=== PATIENT | female | born 1955 | race Caucasian/White ===

== ENCOUNTER 2017-03-21 16:04 | Inpatient (IN) ==
[2017-03-21] MEDS ORDERED: HYDROmorphone 2 MG/1 ML VIAL IV STA (16:47)
[2017-03-21] MEDS ORDERED: ONDANSETRON 4 MG/2 ML VIAL IV STA (16:47)
[2017-03-21] MEDS ORDERED: SODIUM CHLORIDE 0.9% 1,000 ML IV STA ×2 (16:47→17:31)
[2017-03-21 16:55] LABS: Basophils # 0.1 10*3/uL (0.0-0.2); Basophils % 0.6 % (0.0-0.8); Eosinophils % 0.2 % (0.00-10.9); Hematocrit 39.6 VOL% (35.7-47.0); Hemoglobin 13.5 GM/DL (12.0-16.0); Immature Granulocytes % 0.4 %; Immature Granulocytes Absolute 0.04 #; Lymphocytes # 1.9 10*3/uL (1.4-4.0); Lymphocytes % 17.5 % (21.3-54.2); Mean Corpuscular HGB Conc 34.1 GM/DL (32-36); Mean Corpuscular Hemoglobin 29 PG (27-34); Mean Corpuscular Volume 84.3 FL (87-102); Mean Platelet Volume 11.3 FL (9.6-12.0); Monocytes % 9.1 % (1.7-12.7); Neutrophils # 7.7 10*3/uL (1.4-7.4); Neutrophils % 72.2 % (38.7-73.9); Platelet Count 447 T/CUMM (130-400); Red Cell Distribution Width 14.7 % (9.3-17.3); White Blood Count 10.6 T/CUMM (4-12)
--- NOTE | 2017-03-21 16:56 | Emergency Department Note ---
Gabriel Jauregui Rolonda, am scribing for, and in the presence of, Gloria Mayo DO 16: 47. IGael Debra, DO, personally performed the services described in this documentation, ascribed by Elana Rios in my presence, and it is both accurate and complete 656 . Arrival - Arrival Chief Complaint: Nausea/Vomiting/Diarrhea Stated Complaint: chest pain,BP,n/v/d and chills ED Nursing Triage Note: c/o n/v/d, chills, and high blood pressure since Thursday. Patient states she can't keep anything down. Mode of Arrival: Wheelchair Limitations: No Limitations Source: Patient, Old Records Reviewed, RN Notes Reviewed - History of Present Illness HPI Narrative: Pt is a 61 y/o female who presents to the ED for further evaluation of N/V/D with an onset of x5 days. Pt has a PMHx of Ulcerative Colitis. She states that she cannot keep anything down when she eats or drinks. Pt confirms abdomen pain and muscle spasms in her lower extremities. also states that pt fell getting out of the bed Thursday night bruising her right breast due to having muscle spasms in her legs. No other complaint/pain in ED. Onset (ago): day(s) Consistency: constant Severity: moderate Severity scale (1-10): 5 Allergies/Adverse Reactions: Allergies Allergy/AdvReac Type Severity Reaction Status Date / Time No Known Allergies Allergy Verified 03/21/17 16:10 Home Medications: Home Medications Medication Instructions Recorded Confirmed Type Citalopram [CeleXA] 20 mg PO BEDTIME 08/03/15 08/03/15 History HYDROcodone/ACETAMIN 5-325 [[place] 1 tablet PO Q6H #14 tablet 08/03/15 Rx 5-325] Losartan [Cozaar] 25 mg PO DAILY 08/03/15 08/03/15 History Tizanidine HCl [Zanaflex] 4 mg PO DAILY 08/03/15 08/03/15 History Hydrocodone/Acetaminophen [[place] 1 each PO Q4-6H PRN #20 tablet 10/14/16 Rx 10-325 Tablet] Review of System - Review of System 12 point system: reviewed and no additional remarkable complaints except as stated - Review of System Constitutional: Absent: chills Eyes: Absent: discharge Head/Ears/Nose/Throat: Absent: earache Respiratory: Absent: cough Cardiovascular: Absent: chest pain Gastrointestinal: Present: abdominal pain, nausea, vomiting, diarrhea Genitourinary female: Absent: dysuria Musculoskeletal: Present: other (right breast pain). Absent: arm pain, back pain Skin: Absent: rash Neurological: Absent: headache Psychiatric: Absent: anxiety Endocrine: Absent: cold intolerance Hematological/Lymphatic: Absent: easy bleeding Allergic/Immunologic: Absent: facial swelling Medical,Surgical,& Family Hx - Medical History Gastrointestinal: History of: Ulcerative Colitis Musculoskeletal: No history of: Musculoskeletal Problems - Surgical History Orthopedic Surgeries: Surgical HX of;: Implanted Devices (PLATES IN LEFT WRIST) - Social History Smoking Status: Current every day smoker Frequency of Alcohol Use: None Type of Drug Use: None Exam Vital Signs: Vital Signs Temperature 98.1 F 03/21/17 16:05 Pulse Rate 85 03/21/17 16:21 Respiratory Rate 16 03/21/17 16:21 Blood Pressure 105/84 03/21/17 16:21 O2 Sat by Pulse Oximetry 100 03/21/17 16:21 - General General appearance: alert, in no apparent distress - Head Head exam: Present: atraumatic, normocephalic - Eye Eye exam: Present: PERRL, EOMI - ENT ENT exam: Present: mucous membranes dry. Absent: mucous membranes moist - Neck Neck exam: Present: full ROM. Absent: tenderness - Chest Chest inspection: Present: symmetric chest wall rise. Absent: tenderness - Respiratory Respiratory exam: Present: normal lung sounds bilaterally. Absent: wheezes - Cardiovascular Cardiovascular exam: Present: normal rhythm, tachycardia - Abdominal Exam Abdominal exam: Present: soft, tenderness (diffuse) - Extremities Exam Extremities exam: Present: full ROM. Absent: tenderness - Back Exam Back exam: Present: full ROM. Absent: tenderness - Neurological Exam Neurological exam: Present: alert, oriented X3, CN II-XII intact - Psychiatric Psychiatric exam: Present: normal affect, normal mood - Skin Skin exam: Present: warm, dry, intact, normal color, other (bruise on the right breast) Course Course Narrative: Spoke with hospitalist who will admit patient. Patient has history of ulcerative colitis nausea vomiting diarrhea. Creatinine elevated . 131 sodium. Patient is stable at this time and will require IV fluids and possible GI consult Dr. Morales is her doctor Results - Labs CBC & BMP: 03/21/17 16:30 03/21/17 16:30 Lab Results: I have reviewed the patients labs Labs: Laboratory Tests 03/21/17 16:30 WBC 10.6 RBC 4.70 Hgb 13.5 Hct 39.6 MCV 84.3 L Plt Count 447 H Lymph % (Auto) 17.5 L Neut # (Auto) 7.7 H [place] # (Auto) 1.0 H Laboratory Tests 03/21/17 16:30 Sodium 131 L Potassium 3.5 Chloride 98 Carbon Dioxide 23 BUN 57 H Creatinine 2.20 H GFR Calculation 21 BUN/Creatinine Ratio 25.00 H Glucose 119 H AST 12 Globulin 4.3 H Albumin/Globulin Ratio 0.9 L Disposition Clinical Impression: Dehydration Case discussed with: patient, patient's family Disposition: Still a Patient Condition: Stable Time of Disposition: 17:37
[2017-03-21 17:11] LABS: Bilirubin,Total 0.4 MG/DL (0.2-1.0); Calcium 10.1 MG/DL (8.5-10.1); Osmolality,Calculated 278.7 MOS/KG (273-304); Potassium 3.5 MMOL/L (3.5-5.1); Total Protein 8.3 G/DL (6.4-8.3)
[2017-03-21] MEDS ORDERED: ONDANSETRON 4 MG/2 ML VIAL ONE (17:27)
[2017-03-21] MEDS ORDERED: HYDROmorphone 2 MG/1 ML VIAL ONE (17:28)
[2017-03-21] MEDS ORDERED: POTASSIUM CHLORIDE RIDER 10 MEQ in PREMIX 1 EACH IV PRN (17:36)
[2017-03-21] MEDS ORDERED: MAGNESIUM SULF RIDER 2 GM in PREMIX 1 EACH IV PRN (17:36)
[2017-03-21] MEDS ORDERED: HYDROmorphone 2 MG/1 ML VIAL IV PRN (17:36)
[2017-03-21] MEDS ORDERED: MAGNESIUM SULF RIDER 4 GM in PREMIX 1 EACH IV PRN (17:36)
--- NOTE | 2017-03-21 17:42 | Hospitalist History & Physical ---
Assessment and Plan - Time spent with patient Time spent with patient: Less than 30 minutes (1) Acute kidney injury Status: Acute Assessment and plan: BUN and creatinine noted at 57 and 2.20. Upon review of the patient's medical record, no labs were available for review. This deficit is likely secondary to gross dehydration. We will gently rehydrate and recheck labs in a.m. Current Visit: Yes (2) Ulcerative colitis, acute Status: Acute Assessment and plan: The patient's ulcerative colitis is chronic in nature. We will start empiric antibiotic coverage, antiemetics, protein pump inhibitors, and gentle rehydration. We will recheck labs in a.m. Current Visit: Yes Qualifiers: Digestive disease complication type: without complication Qualified Code(s) : K51.90 - Ulcerative colitis, unspecified, without complications (3) Nicotine dependence Status: Acute Assessment and plan: The patient reports current nicotine use. Discussed with patient in great detail the merits of smoking cessation. Nicotine patch ordered as needed during the clinical encounter. Current Visit: Yes Qualifiers: Nicotine product type: cigarettes History of Present Illness Chief complaint: Nausea/Vomiting/Abdominal pain History of present illness: This is a very pleasant 61-year-old female that presented to the ED at [facility] this afternoon for the evaluation of nausea, vomiting, and diarrhea. The patient has a medical history significant for hypertension, depression, ulcerative colitis, nicotine dependence, and arthritis. Patient has a surgical history significant for left wrist fracture with hardware placement. The patient reported the onset of symptoms 5 days prior to presentation. The patient reported that she has had a decrease in oral intake secondary to excessive nausea and vomiting. In addition, the patient reports abdominal pain and musculoskeletal discomfort to her bilateral lower extremities. Her who is present at bedside, reported that the patient sustained a fall on Thursday night secondary to severe muscle spasms in her lower extremities Her gradually worsened prompting her to present to the ED for further evaluation. The patient was assessed at the time of ED presentation. The patient was tachycardic with a heart rate noted at 104. Labs were obtained which were remarkable for platelet count 447, sodium 131, BUN 57, creatinine 2.20, glucose 119, globulin 4.3, and lipase 281. Chest x-ray was essentially unremarkable. After brief discussion with both Dr. Mayo and Dr. Hebert, the patient will be admitted to the hospitalist group for continuation of care. Home medications have been reviewed and reconciled. CODE STATUS discussed; the patient is a FULL CODE. Home Medications Medication Instructions Recorded Confirmed Type Citalopram [CeleXA] 20 mg PO BEDTIME 08/03/15 08/03/15 History HYDROcodone/ACETAMIN 5-325 [[place] 1 tablet PO Q6H #14 tablet 08/03/15 Rx 5-325] Losartan [Cozaar] 25 mg PO DAILY 08/03/15 08/03/15 History Tizanidine HCl [Zanaflex] 4 mg PO DAILY 08/03/15 08/03/15 History Hydrocodone/Acetaminophen [[place] 1 each PO Q4-6H PRN #20 tablet 10/14/16 Rx 10-325 Tablet] Allergies Allergy/AdvReac Type Severity Reaction Status Date / Time No Known Allergies Allergy Verified 03/21/17 16:10 Medical,Surgical,& Family Hx - Medical History Cardio: History of: Hypertension Psychological: History of: Depression Gastrointestinal: History of: Ulcerative Colitis Musculoskeletal: No history of: Musculoskeletal Problems - Surgical History Orthopedic Surgeries: Surgical HX of;: Implanted Devices (PLATES IN LEFT WRIST) - Social History Smoking Status: Current every day smoker Have you smoked in the last 12 months: Yes Time spent discussing smoking cessation with patient: 3 to 10 minutes Frequency of Alcohol Use: None Type of Drug Use: None Marital Status: Single Lives With:: Spouse Functional capacity: independent ambulation 12 point system: reviewed and no additional remarkable complaints except as stated Exam - Constitutional Vitals: Period Temp Pulse Resp BP Sys/Wilson Pulse Ox Last 24 Hr 98.1 F 85-104 16-181 102-105/75-84 100-100 General appearance: normal weight, mild distress - Head Head exam: Present: normal inspection, normocephalic, atraumatic - Eye Eye exam: Present: EOMI. Absent: conjunctival injection Pupils: Present: KALLI, normal accommodation - ENT ENT exam: Present: normal exam, normal external ear exam, normal oropharynx - Neck Neck exam: Present: normal inspection. Absent: lymphadenopathy, meningismus, tenderness, thyromegaly - Respiratory Respiratory exam: Present: clear to auscultation bilaterally. Absent: prolonged expiratory phase, rales, rhonchi, wheezes - Cardiovascular Cardiovascular exam: Present: tachycardia, other (Right-sided chest wall tenderness and discoloration secondary to a fall) - GI/Abdominal GI/Abdominal exam: Present: tenderness (Diffuse tenderness), soft - Extremities Exam Extremities exam: Present: normal inspection, normal capillary refill, full ROM. Absent: edema - Back Exam Back exam: Present: normal inspection - Neurological Exam Neurological exam: Present: alert, oriented X3, CN II-XII intact - Psychiatric Psychiatric exam: Present: normal affect, normal mood - Skin Skin exam: Present: normal color, warm, dry Results - Labs CBC & BMP: 03/21/17 16:30 03/21/17 16:30 Lab Results: I have reviewed the past 24 hour labs
[2017-03-21] MEDS ORDERED: ZALEPLON 5 MG CAPSULE PO PRN (18:08)
[2017-03-21] MEDS ORDERED: traZODone 50 MG TABLET PO PRN (18:08)
[2017-03-21] MEDS ORDERED: guaiFENesin/DM ER 600-30 MG TABLET PO PRN (18:08)
--- NOTE | 2017-03-21 18:14 | XRay Report ---
History short of breath Comparison 11/22/2012 The heart is normal in size. The lungs are clear. Impression: No acute pathology seen. PROCEDURE INTERPRETED AT [facility] DEPARTMENT OF RADIOLOGY Final Report Signed by: Dr. Kandi Yu
--- NOTE | 2017-03-21 18:14 | CT Report ---
History is abdominal pain Comparison 10/22/2010 There is a 3 x 7 mm calculus lower pole right kidney. No secondary signs of acute ureteral obstruction seen. There is a 2 similar hypodensity in the left kidney more pronounced than on prior studies. There is a 1.5 cm mildly hyperdense nodule in the midportion left kidney not seen on the prior studies. Tiny likely exophytic cyst in the right kidney noted. No enlarged retroperitoneal nodes seen. 3 cm presumed duodenal diverticulum noted. Pelvis: Extensive postoperative changes present in the rectosigmoid colon. The confluent soft tissue density in the presacral region measuring up to 2.5 cm is grossly similar on the prior study. There is diffuse moderate elongated wall thickening of the sigmoid left and portion of the transverse colon. No focal inflammatory changes seen. No significant free fluid seen. Up to 1.5 cm mesenteric nodules in the right pelvis and lower abdomen again seen some of which are slightly larger than on the prior study but are present on the film of 2009 is well. Impression: 1. Mild diffuse wall thickening of the colon suggesting mild nonspecific colitis 2. 2 left renal nodules not definitely present on the prior study 1 of which is hypodense and may be a cyst and another of which is hyperdense and could be a complex cyst or solid. Correlation with ultrasound or more recent studies recommended 3. Right nephrolithiasis 4. Multiple enlarged mesenteric nodes in the right lower abdomen and pelvis are present on the prior study but are slightly larger on the current exam. These could be reactive or inflammatory or neoplastic. Clinical correlation requested The CT exam was performed using one or more of the following dose reduction techniques: Automated exposure control, adjustment of the mA and/or kV according to patient size, or use of iterative reconstruction technique. PROCEDURE INTERPRETED AT [facility] DEPARTMENT OF RADIOLOGY Final Report Signed by: Dr. Kandi Yu
[2017-03-21 18:23] LABS: Apearance,Urine Slightly Hazy (Clear); Bilirubin,Urine Negative (Negative); Blood, Urine Negative (Negative); Glucose,Urine (UA) Negative (Negative); Hyaline Casts,Urine 19 /LPF (0-3); Ketones,Urine 5 mg/dL (Negative); Mucus,Urine Occasional /LPF (Occasional); Nitrite,Urine Negative (Negative); Protein,Urine 30 MG/DL; RBC,Urine 1 /HPF (0-4); Squamous Epithelial Cell,Urine Occasional /HPF (0-10); Urine Color Yellow (Yellow); WBC,Urine 9 /HPF (0-6)
[2017-03-21] MEDS ORDERED: diphenhydrAMINE 50 MG/1 ML VIAL IV PRN (19:14)
[2017-03-21] MEDS ORDERED: ENOXAPARIN 40 MG/0.4 ML SYRINGE SUBCUT SCH (21:00)
[2017-03-21] MEDS ORDERED: CIPROFLOXACIN INJ 400 MG in PREMIX 1 EACH IV SCH (21:00)
[2017-03-21] MEDS: SODIUM CHLORIDE 0.9% 1,000 ML IV SCH (21:02)
[2017-03-21] MEDS: metroNIDAZOLE INJ 500 MG in PREMIX 1 EACH IV SCH (21:02)
[2017-03-21] MEDS: CITALOPRAM 20 MG TABLET PO SCH (21:06)
[2017-03-21] MEDS: HydrOXYzine PAMOATE 25 MG CAPSULE PO PRN (21:11)
[2017-03-22] MEDS: metroNIDAZOLE INJ 500 MG in PREMIX 1 EACH IV SCH ×4 (03:50→21:14)
[2017-03-22 08:11] LABS: Bilirubin,Total 0.5 MG/DL (0.2-1.0); Calcium 8.3 MG/DL (8.5-10.1); Magnesium 1.8 MG/DL (1.8-2.4); Osmolality,Calculated 285.4 MOS/KG (273-304); Total Protein 5.8 G/DL (6.4-8.3)
[2017-03-22 08:20] LABS: Basophils # 0.1 10*3/uL (0.0-0.2); Basophils % 0.7 % (0.0-0.8); Eosinophils % 0.4 % (0.00-10.9); Hematocrit 32.1 VOL% (35.7-47.0); Hemoglobin 10.8 GM/DL (12.0-16.0); Immature Granulocytes % 0.5 %; Immature Granulocytes Absolute 0.04 #; Lymphocytes # 1.9 10*3/uL (1.4-4.0); Lymphocytes % 24.9 % (21.3-54.2); Mean Corpuscular HGB Conc 33.6 GM/DL (32-36); Mean Corpuscular Hemoglobin 29 PG (27-34); Mean Platelet Volume 10.4 FL (9.6-12.0); Monocytes # 0.7 10*3/uL (0.11-0.8); Monocytes % 9.3 % (1.7-12.7); Neutrophils # 4.9 10*3/uL (1.4-7.4); Neutrophils % 64.2 % (38.7-73.9); Platelet Count 251 T/CUMM (130-400); Red Blood Count 3.69 MC/CUMM (3.8-5.5); Red Cell Distribution Width 14.8 % (9.3-17.3); White Blood Count 7.6 T/CUMM (4-12)
[2017-03-22] MEDS: tiZANidine 4 MG TABLET PO SCH (08:21)
[2017-03-22] MEDS: PANTOPRAZOLE 40 MG VIAL IV SCH (08:21)
[2017-03-22] MEDS: NICOTINE 21 MG/24 HR PATCH TRANSDERM SCH (08:22)
[2017-03-22] MEDS: SODIUM CHLORIDE 0.9% 1,000 ML IV SCH ×3 (08:23→21:19)
[2017-03-22] MEDS: LOSARTAN 25 MG TABLET PO SCH (08:24)
--- NOTE | 2017-03-22 09:55 | Hospitalist Progress Note ---
<Kat Fischerda - Last Filed: 03/22/17 09:53> Assessment and Plan (1) Acute kidney injury Status: Acute Assessment and plan: BUN and creatinine noted at 57 and 2.20. Upon review of the patient's medical record, no labs were available for review. This deficit is likely secondary to gross dehydration. We will gently rehydrate and recheck labs in a.m. 03/22-noted improvement in renal function. BUN and creatinine noted at 35/1.30. We will continue gentle rehydration and recheck labs in a.m. Current Visit: Yes (2) Ulcerative colitis, acute Status: Acute Assessment and plan: The patient's ulcerative colitis is chronic in nature. We will start empiric antibiotic coverage, antiemetics, protein pump inhibitors, and gentle rehydration. We will recheck labs in a.m. 03/22-GI consultation has been requested. We will continue supportive measures as previously ordered. We will recheck labs in a.m. Current Visit: Yes Qualifiers: Digestive disease complication type: without complication Qualified Code(s) : K51.90 - Ulcerative colitis, unspecified, without complications (3) Nicotine dependence Status: Acute Assessment and plan: The patient reports current nicotine use. Discussed with patient in great detail the merits of smoking cessation. Nicotine patch ordered as needed during the clinical encounter. Current Visit: Yes Qualifiers: Nicotine product type: cigarettes Hospitalist: Subjective Interval history: Patient seen and examined; chart reviewed. No significant overnight events reported per staff. Noted improvement in renal function; BUN and creatinine noted at 35/1.30 down from 57/2.20 at the time of admission on yesterday. Exam - Constitutional Vitals: Period Temp Pulse Resp BP Sys/Wilson Pulse Ox Last 24 Hr 97.3 F-98.1 F 55-104 15-20 98-124/55-84 95-100 General appearance: normal weight, no acute distress - Head Head exam: Present: normal inspection, normocephalic, atraumatic - Eye Eye exam: Present: EOMI Pupils: Present: KALLI, normal accommodation - ENT ENT exam: Present: normal exam, normal external ear exam, normal oropharynx - Neck Neck exam: Present: normal inspection. Absent: lymphadenopathy, meningismus, tenderness, thyromegaly - Respiratory Respiratory exam: Present: clear to auscultation bilaterally. Absent: rales, rhonchi, stridor, wheezes - Cardiovascular Cardiovascular exam: Present: regular rate and rhythm. Absent: carotid bruit, diastolic murmur, gallop, JVD, rubs, systolic murmur - GI/Abdominal GI/Abdominal exam: Present: normal bowel sounds, tenderness (Diffuse tenderness) - Extremities Exam Extremities exam: Present: normal inspection, normal capillary refill, full ROM. Absent: edema - Back Exam Back exam: Present: normal inspection - Neurological Exam Neurological exam: Present: alert, oriented X3, altered - Psychiatric Psychiatric exam: Present: normal affect, normal mood - Skin Skin exam: Present: normal color, warm, dry Results - Labs CBC & BMP: 03/22/17 08:11 03/22/17 07:19 Lab Results: I have reviewed the past 24 hour labs Quality Measures - Stroke Symptom Onset Unknown: No <Anara,Brantley - Last Filed: 03/22/17 12:22> Exam - Constitutional Vitals: Period Temp Pulse Resp BP Sys/Wilson Pulse Ox Last 24 Hr 97.3 F-98.1 F 55-104 15-20 98-124/55-84 95-100 Results - Labs CBC & BMP: 03/22/17 08:11 03/22/17 07:19
--- NOTE | 2017-03-22 09:55 | EKG Report ---
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
[2017-03-22] MEDS: ONDANSETRON 4 MG/2 ML VIAL IV PRN ×3 (12:07→22:04)
--- NOTE | 2017-03-22 12:59 | Gastrointestinal Consult Note ---
Assessment and Plan - Time spent with patient Time spent with patient: Greater than 30 minutes (1) Ulcerative colitis, acute Status: Acute Current Visit: Yes Qualifiers: Digestive disease complication type: without complication Qualified Code(s) : K51.90 - Ulcerative colitis, unspecified, without complications (2) Other specified counseling Status: Acute Current Visit: Yes History of Present Illness History of present illness: Ms. Lawrence is a 61 year old female Home Medications Medication Instructions Recorded Confirmed Type Citalopram [CeleXA] 20 mg PO BEDTIME 08/03/15 03/21/17 History Losartan [Cozaar] 50 mg PO DAILY 08/03/15 03/21/17 History Tizanidine HCl [Zanaflex] 4 mg PO BEDTIME PRN 08/03/15 03/21/17 History Gabapentin 1 tablet PO BID 03/21/17 03/21/17 History Meloxicam [Mobic] 1 tablet PO DAILY 03/21/17 03/21/17 History Allergies Allergy/AdvReac Type Severity Reaction Status Date / Time No Known Allergies Allergy Verified 03/21/17 16:10 Medical,Surgical,& Family Hx - Medical History Cardio: History of: Hypertension Psychological: History of: Depression Gastrointestinal: History of: Ulcerative Colitis (present iliostomy) Musculoskeletal: No history of: Musculoskeletal Problems - Surgical History Neurologic Surgeries: Patient denies: Neurologic Surgery Reproductive Surgeries: Patient denies;: Gynecologic Surgery Orthopedic Surgeries: Surgical HX of;: Implanted Devices (PLATES IN LEFT WRIST) - Social History Smoking Status: Current every day smoker Frequency of Alcohol Use: None Type of Drug Use: None Exam - Constitutional Vitals: Period Temp Pulse Resp BP Sys/Wilson Pulse Ox Last 24 Hr 97.3 F-98.1 F 55-104 15-20 98-124/55-84 95-100 Results - Labs CBC & BMP: 03/22/17 08:11 03/22/17 07:19 Quality Measures - Stroke Symptom Onset Unknown: No Note Addendum: PLEASE NOTE -- automatic citation of patient information is unavoidable in this electronic note. I have made a reasonable effort to review the information cited , but it is not a part of my evaluation, impression, or recommendation unless specifically discussed in the dictated text that follows. As well, voice recognition software was used in the creation of this clinical note. Reasonable effort was made to identify and correct gross errors. Despite proofreading, errors in information systems security manager may be present, including nonsense verbiage at times. If you encounter such an error, please contact me at for discussion and correction. -- Ana Chief complaint: nausea, vomiting, dehydration History of present illness: This is a new patient, a 61-year-old female seen by consultation for evaluation of nausea, vomiting, and dehydration in the setting of known diagnosis of ulcerative colitis. The patient is admitted to the hospitalist service under the care of Dr. Velasquez with a primary diagnosis of acute kidney injury. The patient was admitted yesterday through the emergency department with primary complaint of nausea, vomiting, and diarrhea. Evaluation at that time revealed evidence of dehydration and acute kidney injury. The patient has been treated with volume resuscitation and empiric antibiotic and is now feeling a good deal better. She reports a prolonged history of ulcerative colitis, initially diagnosed in the late 1970s. She has undergone several surgeries and is not sure of the current configuration of her post surgical anatomy. She reports intermittent exacerbation episodes which are typically treated with antibiotic. At baseline she has more than 10 loose bowel movements per day but rarely sees blood in her stool. She has been seeing more stool lately. Her last endoscopic evaluation was around two years ago per her recollection. Dr. Chanel was previously her peripatologist and she has not been seen in gastroenterology since he retired. Patient denies headache, neck pain, visual changes, redness of the eyes, dysphagia, odynophagia, difficulty chewing, chest pain, shortness of breath, regurgitation, hematemesis, diarrhea, proctalgia, constipation, skin changes, temperature regulation issues, flushing, easy bleeding/bruising, mental status change, numbness/weakness in the extremities, yellowing of the eyes/skin, cutaneous eruptions, family history of gastrointestinal cancer and colon polyps , and other complaints in general. Review of systems: 12 point review of systems was negative except as documented above. Outpatient medications: meloxicam, Cozaar, Zanaflex, gabapentin, Celexa Inpatient medications: ciprofloxacin, Flagyl, Celexa, Benadryl, Lovenox, Mucinex , Timblin, Dilaudid, hydroxyzine, Cozaar, nicotine patch, Zofran, Protonix, trazodone, normal saline infusion Past Medical History: ulcerative colitis status post multiple surgeries, hypertension, depression, sacral stimulator implant Social history: positive tobacco. Negative alcohol Family history: no gastrointestinal cancers Physical examination: Vital Signs: Current vital signs reviewed and documented above. General Appearance: lying in bed. Comfortable. No apparent distress. Head: Normocephalic. Neck: Palpation of the neck revealed no abnormalities. Eyes: No scleral icterus. No scleral injection. No conjunctival pallor. Oral Cavity: Odor of breath was normal. No drooling was observed. Lips showed no abnormalities. Floor of the mouth showed no abnormalities. Pharynx: Oropharynx was normal. Lungs: Respiration rhythm and depth was normal. Cardiovascular: Heart rate and rhythm were normal. No murmurs were appreciated. Abdomen: abdomen was not distended. Abdominal palpation revealed no tenderness and no hepatosplenomegaly. Ascites was not discovered. Abdominal auscultation revealed positive bowel sounds. Musculoskeletal System: Musculoskeletal system was grossly normal. Neurological: level of consciousness was normal. Speech was normal. Skin: General appearance was normal. Color and pigmentation were normal. No skin lesions. Laboratory: white blood count 7.6, hemoglobin 10.8, platelets 251 Radiology: CT of the abdomen and pelvis, 03/21/17 -- Bigg postsurgical change of the luminal gut; mild diffuse wall thickening of the colon; multiple enlarged mesenteric nodes in the right lower abdomen Impressions: #1. Ulcerative colitis -- I am unsure of the configuration of the patient's postsurgical anatomy. It does not appear that she has been on maintenance medication for any significant interval during the course of her disease. I recommend continued antibiotic therapy along with aggressive crystalloid resuscitation for the time being. She will need endoscopic evaluation to better characterize current state of her disease. Further recommendations will follow same. If the patient recovers nominally from her dehydration and acute kidney injury, gastrointestinal evaluation can probably be done on an outpatient basis during convalescence. It is not clear that steroid is indicated at present as it is not clear that the patient is having a ulcerative colitis flare per se. #2. Other specified counseling -- The patient was seen for greater than 30 minutes. The patient was counseled for greater than 50% of this time regarding differential diagnosis, likely diagnosis, diagnostic and therapeutic alternatives, risks/benefits/alternatives of medications and procedures, and plan of care generally. The patient expressed understanding and wishes to proceed. Recommendations: -- continue antibiotic -- continue aggressive crystalloid resuscitation -- consider initiation of a mesalamine meeting compound -- consider endoscopic evaluation inpatient if patient does not improve significantly, otherwise outpatient evaluation is probably reasonable -- thank you for this consultation. Dr. Morales will assume G.I. care for this patient tomorrow
[2017-03-22] MEDS ORDERED: CIPROFLOXACIN INJ 400 MG in PREMIX 1 EACH IV SCH (21:00)
[2017-03-22] MEDS ORDERED: ENOXAPARIN 30 MG/0.3 ML SYRINGE SUBCUT SCH (21:00)
[2017-03-22] MEDS: CITALOPRAM 20 MG TABLET PO SCH (21:14)
[2017-03-23] MEDS: metroNIDAZOLE INJ 500 MG in PREMIX 1 EACH IV SCH ×4 (03:07→19:57)
[2017-03-23] MEDS: ONDANSETRON 4 MG/2 ML VIAL IV PRN ×2 (04:12→19:55)
[2017-03-23 06:38] LABS: Basophils # 0.1 10*3/uL (0.0-0.2); Eosinophils % 0.2 % (0.00-10.9); Hematocrit 30.4 VOL% (35.7-47.0); Hemoglobin 9.8 GM/DL (12.0-16.0); Immature Granulocytes % 0.4 %; Immature Granulocytes Absolute 0.03 #; Lymphocytes # 2.2 10*3/uL (1.4-4.0); Lymphocytes % 26.9 % (21.3-54.2); Mean Corpuscular HGB Conc 32.2 GM/DL (32-36); Mean Corpuscular Hemoglobin 29 PG (27-34); Mean Corpuscular Volume 90.2 FL (87-102); Mean Platelet Volume 11.2 FL (9.6-12.0); Monocytes # 0.5 10*3/uL (0.11-0.8); Monocytes % 6.1 % (1.7-12.7); Neutrophils # 5.4 10*3/uL (1.4-7.4); Neutrophils % 65.4 % (38.7-73.9); Platelet Count 254 T/CUMM (130-400); Red Blood Count 3.37 MC/CUMM (3.8-5.5); Red Cell Distribution Width 14.9 % (9.3-17.3); White Blood Count 8.2 T/CUMM (4-12)
[2017-03-23 06:57] LABS: Albumin 2.8 G/DL (3.4-5.0); Bilirubin,Total 0.5 MG/DL (0.2-1.0); Calcium 7.9 MG/DL (8.5-10.1); Osmolality,Calculated 292.4 MOS/KG (273-304); Phosphorous 1.9 MG/DL (2.5-4.9); Potassium 4.1 MMOL/L (3.5-5.1); Total Protein 5.2 G/DL (6.4-8.3)
[2017-03-23] MEDS: SODIUM CHLORIDE 0.9% 1,000 ML IV SCH ×2 (07:35→11:14)
[2017-03-23] MEDS: NICOTINE 21 MG/24 HR PATCH TRANSDERM SCH (08:38)
[2017-03-23] MEDS: tiZANidine 4 MG TABLET PO SCH (08:38)
[2017-03-23] MEDS: HydrOXYzine PAMOATE 25 MG CAPSULE PO PRN (08:38)
[2017-03-23] MEDS: LOSARTAN 25 MG TABLET PO SCH (08:38)
[2017-03-23] MEDS: PANTOPRAZOLE 40 MG VIAL IV SCH (08:38)
--- NOTE | 2017-03-23 09:23 | Gastrointestinal Progress Note ---
<CelenaeyalIjeoma Charity - Last Filed: 03/23/17 09:19> Assessment and Plan (1) Ulcerative colitis, acute Status: Acute Assessment and plan: 03/23-several day history of nausea, vomiting and chronic watery stools. History of UC in the past unable to recall last flare. Unable to locate last endoscopy record have reported to be over 2 years ago. IV antibiotic for UTI noted. Stool studies noted. Flagyl and IV Cipro initiated. Plan an addendum to followed by Dr. Anand. Current Visit: Yes Qualifiers: Digestive disease complication type: without complication Qualified Code(s) : K51.90 - Ulcerative colitis, unspecified, without complications Gastroenterology - PN: Subj Interval history: CC: Nausea, vomiting Patient is seen awake and alert lying in bed. States she is feeling a little bit better today and rested fairly well last night. She was admitted on Thursday with 5 day history of nausea vomiting and diarrhea. She states that she was unable to keep anything down and had watery stools multiple times a day. She has a prior history of ulcerative colitis however states that this does not feel like a typical flare for her. She states that she continues to be nauseated without an appetite but no more vomiting. She also continues to have watery loose stools however states this is her normal bowel pattern to have up to 10 per day. She does deny any bleeding associated with her bowel movements. She was last seen by Dr. Chanel a couple years ago far endoscopy. She states since this time, she has seen Dr. Anand in clinic. Her CT of the abdomen on admission was noted showed mild diffuse wall thickening of the colon as well as multiple enlarged mesenteric nodes in the right lower abdomen and pelvis that are larger than the last exam in 2010. She is afebrile without leukocytosis. She is noted to have a UTI, 1+ positive stools for blood and negative C. difficile 1. Abdomen soft, nontender. ROS: Denies shortness of breath or chest pain Exam (Progress Note) - Constitutional Vitals: Period Temp Pulse Resp BP Sys/Wilson Pulse Ox Last 24 Hr 97.4 F-98.8 F 46-63 15-20 87-111/43-64 94-99 General appearance: normal weight, no acute distress - Head Head exam: Present: normal inspection, normocephalic - Eye Eye exam: Present: other (Lids and conjunctivae are unremarkable). Absent: scleral icterus - ENT ENT exam: Present: normal exam, normal oropharynx - Neck Neck exam: Present: normal inspection - Respiratory Respiratory exam: Present: clear to auscultation bilaterally. Absent: rales, rhonchi, wheezes - Cardiovascular Cardiovascular exam: Present: regular rate and rhythm. Absent: diastolic murmur , JVD, systolic murmur - GI/Abdominal GI/Abdominal exam: Present: normal bowel sounds, soft. Absent: ascites, distended, mass, organomegaly, tenderness - Extremities Exam Extremities exam: Present: normal inspection, full ROM - Back Exam Back exam: Present: normal inspection - Neurological Exam Neurological exam: Present: alert, oriented X3 - Psychiatric Psychiatric exam: Present: normal affect, normal mood - Skin Skin exam: Present: normal color, warm, dry Results - Labs CBC & BMP: 03/23/17 05:27 03/23/17 05:27 Lab Results: I have reviewed the past 24 hour labs - Diagnostic Findings Procedure: CT Abdomen and Pelvis: report reviewed by me <Rafael Anand - Last Filed: 03/23/17 20:29> Exam (Progress Note) - Constitutional Vitals: Period Temp Pulse Resp BP Sys/Wilson Pulse Ox Last 24 Hr 97.5 F-98.5 F 46-58 15-20 104-117/43-72 95-99 Results - Labs CBC & BMP: 03/23/17 05:27 03/23/17 05:27
[2017-03-23] MEDS: CIPROFLOXACIN INJ 400 MG in PREMIX 1 EACH IV SCH ×2 (09:42→21:09)
[2017-03-23] MEDS ORDERED: ZINC OXIDE PASTE 113 GM TUBE TOP PRN (14:08)
--- NOTE | 2017-03-23 14:55 | Hospitalist Progress Note ---
Assessment and Plan (1) Dehydration Status: Acute Assessment and plan: 1)dehydration causing ALYX- improving with hydration. creatinine now 1.1 and sodium climbing. Change IVF to half normal saline. Phos low, replace. 2)acute UC- GI to see. She in on antibiotics, PPI. 3)nicotine dependence Current Visit: Yes (2) Acute kidney injury Status: Acute Current Visit: Yes (3) Ulcerative colitis, acute Status: Acute Current Visit: Yes Qualifiers: Digestive disease complication type: without complication Qualified Code(s) : K51.90 - Ulcerative colitis, unspecified, without complications (4) Nicotine dependence Status: Acute Current Visit: Yes Qualifiers: Nicotine product type: cigarettes Hospitalist: Subjective Interval history: Mrs Alegria is feeling better today. She continues to have diarrhea as she does most days, but has been rehydrated and is less nauseated. Exam - Constitutional Vitals: Period Temp Pulse Resp BP Sys/Wilson Pulse Ox Last 24 Hr 97.4 F-98.8 F 46-61 15-20 94-117/43-72 94-99 General appearance: normal weight, no acute distress - Eye Eye exam: Present: EOMI. Absent: scleral icterus - Respiratory Respiratory exam: Present: clear to auscultation bilaterally - Cardiovascular Cardiovascular exam: Present: regular rate and rhythm - GI/Abdominal GI/Abdominal exam: Present: normal bowel sounds, soft - Extremities Exam Extremities exam: Absent: edema Results - Labs CBC & BMP: 03/23/17 05:27 03/23/17 05:27 Lab Results: I have reviewed the past 24 hour labs Quality Measures - Stroke Symptom Onset Unknown: No
[2017-03-23] MEDS: SODIUM CHLORIDE 0.45% 1,000 ML IV SCH (14:56)
[2017-03-23] MEDS ORDERED: ENOXAPARIN 40 MG/0.4 ML SYRINGE SUBCUT SCH (21:00)
[2017-03-23] MEDS: CITALOPRAM 20 MG TABLET PO SCH (21:11)
[2017-03-24] MEDS: metroNIDAZOLE INJ 500 MG in PREMIX 1 EACH IV SCH ×2 (02:01→08:03)
[2017-03-24] MEDS: SODIUM CHLORIDE 0.45% 1,000 ML IV SCH ×2 (02:02→05:48)
[2017-03-24 07:48] VITALS: BP 130/71
[2017-03-24] MEDS: NICOTINE 21 MG/24 HR PATCH TRANSDERM SCH (08:03)
[2017-03-24] MEDS: PANTOPRAZOLE 40 MG VIAL IV SCH (08:03)
[2017-03-24] MEDS: tiZANidine 4 MG TABLET PO SCH (08:03)
[2017-03-24] MEDS: LOSARTAN 25 MG TABLET PO SCH (08:03)
--- NOTE | 2017-03-24 08:41 | Physician Query Form ---
CLICK EDIT DOCUMENT TO SELECT QUERY ANSWER --> OK --> SIGN Tori Reed RN, CCDS Certified Clinical Environmental Technology Professor W) [phone] (f) [phone] [email or web address] PROVIDERS: Make your selection(s) from the choices in EACH section by typing an "x" and enter comments in the comment section. Please use your independent medical judgment in providing your response. This request does not imply that any particular answer is desired or expected. CLINICAL INDICATORS: (Providers should not edit this section) The medical record indicates that the patient was admitted with ALYX. -On the "dehydration causing ALYX- improving with hydration. creatinine now 1.1 and sodium climbing. Change IVF to half normal saline". --------Sodium 131# on the to 147# on the : Based on the above, could you clarify the appropriate diagnosis, if significant , that supports the above abnormalities and additional evaluation, monitoring, and/or treatment rendered: ( x) treated or monitored for hyponatremia ( ) treated or monitored for hypernatremia ( ) treated or monitored for hyponatremia/ hypernatremia ( ) was not treated or monitored for hyponatremia/ hypernatremia ( ) Other, please specify: ( ) Clinically unable to determine COMMENTS: PLEASE ALSO DOCUMENT RESPONSE IN PROGRESS NOTES AND/OR DISCHARGE SUMMARY Use of terms such as suspected, likely, or probable (associated with a specific diagnosis that is being evaluated, monitored, or treated as if it exists) are acceptable and can be restated in the discharge summary if not ruled out. MTDD
--- NOTE | 2017-03-24 09:01 | Gastrointestinal Progress Note ---
<Ijeoma kOeefe - Last Filed: 03/24/17 08:58> Assessment and Plan (1) Ulcerative colitis, acute Status: Acute Assessment and plan: 03/24-1 episode of nausea without vomiting. Tolerating diet without diarrhea. Overall improving at this time. Plan an addendum to followed by Dr. Anand 03/23-several day history of nausea, vomiting and chronic watery stools. History of UC in the past unable to recall last flare. Unable to locate last endoscopy record have reported to be over 2 years ago. IV antibiotic for UTI noted. Stool studies noted. Flagyl and IV Cipro initiated. Plan an addendum to followed by Dr. Anand. Qualifiers: Digestive disease complication type: without complication Qualified Code(s) : K51.90 - Ulcerative colitis, unspecified, without complications Gastroenterology - PN: Subj Interval history: CC: Nausea, vomiting Patient seen awake alert sitting up in bed. States she did not rest well last night due to she was given trazodone for sleep and states she had very vivid dreams. She is requesting not to be given this again. Patient states that she had a little bit of nausea last night but no more vomiting. She is tolerating her diet well with no pain with eating. She has had no further complaints of diarrhea. She is afebrile. She is without leukocytosis. H&H is stable at 9.8/ 30.4. Abdomen is soft, nontender. ROS: Denies shortness of breath or chest pain Exam (Progress Note) - Constitutional Vitals: Period Temp Pulse Resp BP Sys/Wilson Pulse Ox Last 24 Hr 97.0 F-98.6 F 50-95 16-20 104-130/60-72 90-98 General appearance: normal weight, no acute distress - Head Head exam: Present: normal inspection, normocephalic - Eye Eye exam: Present: other (Lids and conjunctive are unremarkable). Absent: scleral icterus - ENT ENT exam: Present: normal exam, normal oropharynx - Neck Neck exam: Present: normal inspection - Respiratory Respiratory exam: Present: clear to auscultation bilaterally. Absent: rales, rhonchi, wheezes - Cardiovascular Cardiovascular exam: Present: regular rate and rhythm. Absent: diastolic murmur , JVD, systolic murmur - GI/Abdominal GI/Abdominal exam: Present: normal bowel sounds, soft. Absent: ascites, distended, mass, organomegaly, tenderness - Extremities Exam Extremities exam: Present: normal inspection, full ROM - Back Exam Back exam: Present: normal inspection - Neurological Exam Neurological exam: Present: alert, oriented X3 - Psychiatric Psychiatric exam: Present: normal affect, normal mood - Skin Skin exam: Present: normal color, warm, dry Results - Labs CBC & BMP: 03/23/17 05:27 03/23/17 05:27 Lab Results: I have reviewed the past 24 hour labs Specialty Discharge - Follow Up or Referrals Follow up with: Your, PCP [Other] (1 week) Rafael Anand MD [Physician] - 1 Month <Rafael Anand - Last Filed: 03/24/17 20:49> Exam (Progress Note) - Constitutional Vitals: Period Temp Pulse Resp BP Sys/Wilson Pulse Ox Last 24 Hr 97.0 F-98.5 F 50-95 16-18 113-130/60-71 92-95 Results - Labs CBC & BMP: 03/23/17 05:27 03/23/17 05:27
[2017-03-24] MEDS: CIPROFLOXACIN INJ 400 MG in PREMIX 1 EACH IV SCH (09:29)
--- NOTE | 2017-03-24 10:50 | Discharge Summary ---
Hospital Course - Hospital Course Hospital Course: Mrs Lawrence presented with gastroenteritis that has improved. She had ALYX form dehydration on presentation and it has resolved with IVF. She is feeling back to her usual self with her baseline pattern of diarrhea. Her stool studies are normal. She did have a UCx that grew Ecoli but she is not symptomatic. She is eating well and moving around without trouble accept for a soreness in her right foot that started after a prehospital fall. XR of her Right foot today showed no fracture or dislocation- she is bruised. 5 minutes were spent counselling smoking cessation. She will follow up with Dr Anand in his clinic. She will complete a course of cipro and flagyl and resume her usual home meds. She will also see her PCP in a week or so. - Time spent with patient Time with patient DS: Greater than 30 minutes (review of foot xr, medicine reconciliation, documentation and discharge planning required 34 minutes.) Diagnosis - Discharge Diagnosis (1) Dehydration Status: Resolved (2) Acute kidney injury Status: Resolved (3) Ulcerative colitis, acute Status: Chronic (4) Nicotine dependence Status: Chronic Specialty Discharge - Follow Up or Referrals Follow up with: Your, PCP [Other] (1 week) Rafael Aannd MD [Physician] - 1 Month Discharge Plan - Discharge Data Disposition: Disch To Home/Self Care Condition at Discharge: Stable Discharge Diet: heart healthy Activity: resume usual activities as tolerated - Discharge Medications New Ciprofloxacin Tab [Cipro Tab] 500 mg PO BID #10 tablet metroNIDAZOLE TAB [Flagyl Cap/Tab] 500 mg PO TID #14 tablet Continue Losartan [Cozaar] 50 mg PO DAILY Citalopram [CeleXA] 20 mg PO BEDTIME Tizanidine HCl [Zanaflex] 4 mg PO BEDTIME PRN PRN Reason: Insomnia Meloxicam [Mobic] 1 tablet PO DAILY No Action Gabapentin 1 tablet PO BID - Follow Up or Referral Follow Up: Your, PCP [Other] (1 week) Rafael Anand MD [Physician] - 1 Month - Forms/Instructions Instructions: How to Stop Smoking (DC), Dehydration (DC), Cigarette Smoking and Your Health (GEN), Ulcerative Colitis (DC) Exam - Constitutional Vitals: Period Temp Pulse Resp BP Sys/Wilson Pulse Ox Last 24 Hr 97.0 F-98.6 F 50-95 16-20 104-130/60-72 90-98 General appearance: normal weight, no acute distress - Head Head exam: Present: normocephalic, atraumatic - Eye Eye exam: Present: EOMI. Absent: scleral icterus - Respiratory Respiratory exam: Present: clear to auscultation bilaterally - Cardiovascular Cardiovascular exam: Present: regular rate and rhythm - GI/Abdominal GI/Abdominal exam: Present: normal bowel sounds, soft. Absent: tenderness - Extremities Exam Extremities exam: Absent: edema Discharge Results Procedures and tests throughout hospitalization: Pending Orders 03/21/17 22:20 Occult Blood, Stool Stat Stool Culture Stat Labs on day of discharge: Preliminary micro results at discharge 03/21/17 22:20 Stool Culture - Preliminary Stool Gram Negative Rods DS: Provider Date of admission: 03/21/17 17:38 Primary care physician: . No PCP Attending physician on admission: Pierre Soto MD Consults: 03/21/17 17:37 Consult to Physician [CONS] Routine Comment: Consulting Provider: Rafael Anand When should Consulting Provider be notified: In am Consult to Specialist Group: Gastroenterology Person Notified: MD MORENO Date Notified: 03/23/17 Time Notified: 12:11 Discharging clinician: Jaci Olmedo MD
--- NOTE | 2017-03-24 13:03 | XRay Report ---
Exam: XR foot 2V RT Date: 03/24/2017 10:44 AM Indication: Foot pain Comparison: None Technical: AP lateral Findings: The tarsals, metatarsals, talus, calcaneus, and phalanges are intact. No soft tissue swelling or foreign body noted Impression: 1. No fracture dislocation. PROCEDURE INTERPRETED AT [facility] DEPARTMENT OF RADIOLOGY Final Report Signed by: Dr. Artemio Dahl
== END 2017-03-24 14:33 | disposition home or self-care (01) | DRG 683 ==
LOC: N.ED 16:04 → SUATTDRO 17:38 → N.EDINP 17:38 → N.5E 19:40
PROVIDERS: ADMIT Family Medicine; ATTEND Internal Medicine

== ENCOUNTER 2017-08-29 19:56 | Inpatient (IN) ==
[2017-08-29] MEDS ORDERED: PANTOPRAZOLE 40 MG VIAL IV STA (20:50)
[2017-08-29] MEDS ORDERED: SODIUM CHLORIDE 0.9% 1,000 ML IV STA (20:50)
[2017-08-29] MEDS ORDERED: ONDANSETRON 4 MG/2 ML VIAL IV STA (20:50)
[2017-08-29] MEDS ORDERED: HYDROmorphone 2 MG/1 ML VIAL IV STA (20:50)
[2017-08-29] MEDS ORDERED: ONDANSETRON 4 MG/2 ML VIAL ONE (21:01)
[2017-08-29] MEDS ORDERED: PANTOPRAZOLE 40 MG VIAL IV ONE (21:01)
[2017-08-29] MEDS ORDERED: HYDROmorphone 2 MG/1 ML VIAL ONE (21:02)
[2017-08-29 21:57] LABS: Basophils # 0.1 10*3/uL (0.0-0.2); Basophils % 0.4 % (0.0-0.8); Eosinophils % 0.2 % (0.00-10.9); Hematocrit 39.2 VOL% (35.7-47.0); Hemoglobin 13.3 GM/DL (12.0-16.0); Immature Granulocytes % 0.4 %; Immature Granulocytes Absolute 0.07 #; Lymphocytes # 2.3 10*3/uL (1.4-4.0); Lymphocytes % 12.9 % (21.3-54.2); Mean Corpuscular HGB Conc 33.9 GM/DL (32-36); Mean Corpuscular Hemoglobin 28 PG (27-34); Mean Corpuscular Volume 83.2 FL (87-102); Mean Platelet Volume 10.7 FL (9.6-12.0); Monocytes # 0.8 10*3/uL (0.11-0.8); Monocytes % 4.6 % (1.7-12.7); Neutrophils # 14.8 10*3/uL (1.4-7.4); Neutrophils % 81.5 % (38.7-73.9); Platelet Count 396 T/CUMM (130-400); Red Blood Count 4.71 MC/CUMM (3.8-5.5); Red Cell Distribution Width 14.4 % (9.3-17.3); White Blood Count 18.2 T/CUMM (4-12)
[2017-08-29 22:24] LABS: Alanine Aminotransferase 11 U/L (13-56); Albumin 3.6 G/DL (3.4-5.0); Alkaline Phosphatase 92 U/L (45-117); Amylase 51 U/L (25-115); Aspartate Amino Transferase 11 U/L (0-37); Blood Urea Nitrogen 72 MG/DL (7-18); Calcium 10.3 MG/DL (8.5-10.1); Glucose 114 MG/DL (74-106); Osmolality,Calculated 283.7 MOS/KG (273-304); Potassium 3.6 MMOL/L (3.5-5.1); Sodium 131 MMOL/L (136-145); Total Protein 8.7 G/DL (6.4-8.3); Troponin I Only < 0.015 NG/ML (0.00-0.045)
[2017-08-29 22:28] LABS: Lactic Acid 1.1 MMOL/L (0.4-2.0)
[2017-08-29 23:45] LABS: Apearance,Urine CLOUDY (Clear); Bacteria,Urine Moderate /HPF (Few); Bilirubin,Urine Negative (Negative); Blood, Urine Negative (Negative); Glucose,Urine (UA) Negative (Negative); Hyaline Casts,Urine 80 /LPF (0-3); Ketones,Urine Negative (Negative); Mucus,Urine Occasional /LPF (Occasional); Nitrite,Urine Negative (Negative); Protein,Urine 30 MG/DL; RBC,Urine 6 /HPF (0-4); Squamous Epithelial Cell,Urine Moderate /HPF (0-10); Urine Color Amber (Yellow); Urine Specific Gravity 1.023 (1.001-1.035); WBC,Urine 23 /HPF (0-6)
[2017-08-30] MEDS ORDERED: cefTRIAXone 1,000 MG VIAL ONE (00:19)
[2017-08-30] MEDS ORDERED: cefTRIAXone 1,000 MG in SODIUM CHLORIDE 0.9% 100 ML IV STA (00:22)
[2017-08-30] MEDS ORDERED: SODIUM CHLORIDE 0.9% 1,600 ML IV ONE (00:38)
[2017-08-30] MEDS: ONDANSETRON 4 MG/2 ML VIAL IV PRN ×5 (02:48→21:18)
[2017-08-30] MEDS ORDERED: LEVOFLOXACIN INJ 500 MG in PREMIX 1 EACH IV ONE (03:00)
[2017-08-30] MEDS: SODIUM CHLORIDE 0.9% 1,000 ML IV SCH ×2 (03:23→14:53)
[2017-08-30] MEDS: metroNIDAZOLE INJ 500 MG in PREMIX 1 EACH IV SCH ×3 (05:17→21:18)
[2017-08-30 06:42] LABS: Basophils # 0.1 10*3/uL (0.0-0.2); Basophils % 0.5 % (0.0-0.8); Eosinophils # 0.1 10*3/uL (0.0-0.87); Eosinophils % 0.8 % (0.00-10.9); Hematocrit 31.3 VOL% (35.7-47.0); Immature Granulocytes % 0.6 %; Immature Granulocytes Absolute 0.07 #; Lymphocytes # 1.8 10*3/uL (1.4-4.0); Lymphocytes % 14.8 % (21.3-54.2); Mean Corpuscular HGB Conc 33.9 GM/DL (32-36); Mean Corpuscular Hemoglobin 29 PG (27-34); Mean Corpuscular Volume 84.1 FL (87-102); Mean Platelet Volume 10.6 FL (9.6-12.0); Monocytes # 0.9 10*3/uL (0.11-0.8); Monocytes % 7.5 % (1.7-12.7); Neutrophils # 9.4 10*3/uL (1.4-7.4); Neutrophils % 75.8 % (38.7-73.9); Red Cell Distribution Width 14.6 % (9.3-17.3)
[2017-08-30 06:43] LABS: Hemoglobin 10.6 GM/DL (12.0-16.0); Platelet Count 314 T/CUMM (130-400); Red Blood Count 3.72 MC/CUMM (3.8-5.5); White Blood Count 12.4 T/CUMM (4-12)
[2017-08-30 07:09] LABS: Calcium 8.9 MG/DL (8.5-10.1); Osmolality,Calculated 286.2 MOS/KG (273-304); Potassium 3.8 MMOL/L (3.5-5.1)
[2017-08-30] MEDS: NICOTINE 21 MG/24 HR PATCH TRANSDERM SCH (08:31)
[2017-08-30] MEDS: ENOXAPARIN 30 MG/0.3 ML SYRINGE SUBCUT SCH (08:31)
[2017-08-30] MEDS ORDERED: INFLUENZA VIRUS VACCINE 0.5 ML SYRINGE IM ONE (09:00)
[2017-08-30] MEDS ORDERED: SODIUM CHLORIDE 0.9% 500 ML IV ONE ×2 (10:01→13:10)
[2017-08-30] MEDS: ACETAMINOPHEN 325 MG TABLET PO PRN ×2 (14:50→22:30)
[2017-08-30] MEDS ORDERED: ZALEPLON 5 MG CAPSULE PO PRN (21:32)
[2017-08-31] MEDS: SODIUM CHLORIDE 0.9% 1,000 ML IV SCH ×5 (01:57→17:45)
[2017-08-31] MEDS: metroNIDAZOLE INJ 500 MG in PREMIX 1 EACH IV SCH ×3 (05:06→22:04)
[2017-08-31 06:26] LABS: Basophils % 0.5 % (0.0-0.8); Eosinophils # 0.1 10*3/uL (0.0-0.87); Eosinophils % 1.2 % (0.00-10.9); Hematocrit 29.7 VOL% (35.7-47.0); Hemoglobin 9.7 GM/DL (12.0-16.0); Immature Granulocytes % 0.2 %; Immature Granulocytes Absolute 0.01 #; Lymphocytes # 1.9 10*3/uL (1.4-4.0); Mean Corpuscular HGB Conc 32.7 GM/DL (32-36); Mean Corpuscular Hemoglobin 29 PG (27-34); Mean Corpuscular Volume 87.4 FL (87-102); Mean Platelet Volume 10.1 FL (9.6-12.0); Monocytes # 0.5 10*3/uL (0.11-0.8); Monocytes % 8.3 % (1.7-12.7); Neutrophils # 3.3 10*3/uL (1.4-7.4); Neutrophils % 57.8 % (38.7-73.9); Platelet Count 267 T/CUMM (130-400); Red Cell Distribution Width 14.6 % (9.3-17.3); White Blood Count 5.8 T/CUMM (4-12)
[2017-08-31 06:41] LABS: Calcium 8.2 MG/DL (8.5-10.1); Osmolality,Calculated 289.1 MOS/KG (273-304); Potassium 3.9 MMOL/L (3.5-5.1)
[2017-08-31] MEDS: NICOTINE 21 MG/24 HR PATCH TRANSDERM SCH (09:27)
[2017-08-31] MEDS: ENOXAPARIN 30 MG/0.3 ML SYRINGE SUBCUT SCH (09:28)
[2017-08-31] MEDS ORDERED: MELATONIN 3 MG TABLET PO PRN (10:50)
[2017-08-31] MEDS: ACETAMINOPHEN 325 MG TABLET PO PRN (13:41)
[2017-08-31] MEDS: CITALOPRAM 20 MG TABLET PO SCH (23:42)
[2017-09-01] MEDS: ONDANSETRON 4 MG/2 ML VIAL IV PRN ×2 (01:40→08:03)
[2017-09-01] MEDS: SODIUM CHLORIDE 0.9% 1,000 ML IV SCH ×2 (03:49→12:29)
[2017-09-01] MEDS: LEVOFLOXACIN INJ 250 MG in PREMIX 1 EACH IV SCH (03:50)
[2017-09-01] MEDS: metroNIDAZOLE INJ 500 MG in PREMIX 1 EACH IV SCH ×3 (05:06→22:11)
[2017-09-01] MEDS ORDERED: PROPOFOL 200 MG/20 ML VIAL IV ONE (11:00)
[2017-09-01] MEDS ORDERED: LIDOCAINE 1% 5 ML VIAL ONE (11:00)
[2017-09-01] MEDS: NICOTINE 21 MG/24 HR PATCH TRANSDERM SCH (12:29)
[2017-09-01] MEDS: PANTOPRAZOLE 40 MG VIAL IV SCH ×2 (12:34→22:12)
[2017-09-01] MEDS: CITALOPRAM 20 MG TABLET PO SCH (22:11)
[2017-09-02] MEDS: SODIUM CHLORIDE 0.9% 1,000 ML IV SCH ×2 (04:48→14:41)
[2017-09-02] MEDS: LEVOFLOXACIN INJ 250 MG in PREMIX 1 EACH IV SCH (04:50)
[2017-09-02 05:56] LABS: Basophils % 0.3 % (0.0-0.8); Eosinophils # 0.1 10*3/uL (0.0-0.87); Eosinophils % 0.5 % (0.00-10.9); Hemoglobin 8.9 GM/DL (12.0-16.0); Immature Granulocytes % 0.6 %; Immature Granulocytes Absolute 0.06 #; Lymphocytes # 1.6 10*3/uL (1.4-4.0); Lymphocytes % 16.6 % (21.3-54.2); Mean Corpuscular Hemoglobin 29 PG (27-34); Mean Corpuscular Volume 89.1 FL (87-102); Mean Platelet Volume 9.5 FL (9.6-12.0); Monocytes # 0.4 10*3/uL (0.11-0.8); Monocytes % 4.5 % (1.7-12.7); Neutrophils # 7.5 10*3/uL (1.4-7.4); Neutrophils % 77.5 % (38.7-73.9); Platelet Count 251 T/CUMM (130-400); Red Blood Count 3.03 MC/CUMM (3.8-5.5); White Blood Count 9.7 T/CUMM (4-12)
[2017-09-02] MEDS: metroNIDAZOLE INJ 500 MG in PREMIX 1 EACH IV SCH (05:59)
[2017-09-02 06:24] LABS: Calcium 7.7 MG/DL (8.5-10.1); Osmolality,Calculated 290.6 MOS/KG (273-304); Potassium 3.9 MMOL/L (3.5-5.1)
[2017-09-02] MEDS: NICOTINE 21 MG/24 HR PATCH TRANSDERM SCH (09:14)
[2017-09-02] MEDS: PANTOPRAZOLE 40 MG VIAL IV SCH (09:15)
[2017-09-02] MEDS: MAGNESIUM SULFATE 1 GM/2 ML VIAL IM SCH ×2 (10:53→14:41)
[2017-09-02 12:02] VITALS: BP 97/55
[2017-09-02] MEDS ORDERED: PANTOPRAZOLE 40 MG TABLET PO SCH (21:00)
[2017-09-03] MEDS ORDERED: LEVOFLOXACIN 500 MG TABLET PO SCH (09:00)
== END 2017-09-02 14:46 | disposition home or self-care (01) | DRG 683 ==
LOC: N.ED 19:56 → N.EDINP 08-30 00:17 → SUATTDRO 08-30 00:17 → N.5E 08-30 01:35
PROVIDERS: ADMIT Internal Medicine; ATTEND Internal Medicine Cardiovascular Disease

== ENCOUNTER 2018-06-30 15:44 | Inpatient (IN) ==
[2018-06-30] MEDS ORDERED: METOCLOPRAMIDE 10 MG/2 ML VIAL IV STA (17:55)
[2018-06-30] MEDS ORDERED: PANTOPRAZOLE 40 MG VIAL IV STA (17:55)
[2018-06-30] MEDS ORDERED: ONDANSETRON 4 MG/2 ML VIAL IV STA (17:55)
[2018-06-30] MEDS ORDERED: SODIUM CHLORIDE 0.9% 1,000 ML IV STA (17:55)
[2018-06-30] MEDS ORDERED: MORPHINE 4 MG/1 ML VIAL IV STA (17:55)
[2018-06-30] MEDS ORDERED: methylPREDNISolone SOD SUC 125 MG/2 ML VIAL IV STA (18:11)
[2018-06-30] MEDS ORDERED: metroNIDAZOLE INJ 500 MG in PREMIX 1 EACH IV STA (18:11)
[2018-06-30] MEDS ORDERED: METOCLOPRAMIDE 10 MG/2 ML VIAL ONE (18:27)
[2018-06-30] MEDS ORDERED: PANTOPRAZOLE 40 MG VIAL IV ONE (18:27)
[2018-06-30] MEDS ORDERED: methylPREDNISolone SOD SUC 125 MG/2 ML VIAL ONE (18:28)
[2018-06-30] MEDS ORDERED: ONDANSETRON 4 MG/2 ML VIAL ONE (18:28)
[2018-06-30 18:36] LABS: Basophils # 0.1 10*3/uL (0.0-0.2); Basophils % 0.6 % (0.0-0.8); Eosinophils # 0.1 10*3/uL (0.0-0.87); Eosinophils % 0.9 % (0.00-10.9); Hematocrit 35.4 VOL% (35.7-47.0); Hemoglobin 11.3 GM/DL (12.0-16.0); Immature Granulocytes % 0.4 %; Immature Granulocytes Absolute 0.04 #; Lymphocytes # 1.7 10*3/uL (1.4-4.0); Lymphocytes % 17.2 % (21.3-54.2); Mean Corpuscular HGB Conc 31.9 GM/DL (32-36); Mean Corpuscular Hemoglobin 28 PG (27-34); Mean Corpuscular Volume 88.7 FL (87-102); Mean Platelet Volume 10.5 FL (9.6-12.0); Monocytes # 0.6 10*3/uL (0.11-0.8); Monocytes % 6.1 % (1.7-12.7); Neutrophils # 7.3 10*3/uL (1.4-7.4); Neutrophils % 74.8 % (38.7-73.9); Platelet Count 280 T/CUMM (130-400); Red Blood Count 3.99 MC/CUMM (3.8-5.5); Red Cell Distribution Width 14.3 % (9.3-17.3); White Blood Count 9.8 T/CUMM (4-12)
[2018-06-30 18:59] LABS: Platelet Estimate Adequate
[2018-06-30 19:09] LABS: Alanine Aminotransferase 11 U/L (13-56); Albumin 3.2 G/DL (3.4-5.0); Alkaline Phosphatase 82 U/L (45-117); Amylase 32 U/L (25-115); Aspartate Amino Transferase 9 U/L (0-37); Bilirubin,Total < 0.39 MG/DL (0.2-1.0); Blood Urea Nitrogen 25 MG/DL (7-18); Calcium 8.9 MG/DL (8.5-10.1); Glucose 88 MG/DL (74-106); Osmolality,Calculated 285.1 MOS/KG (273-304); Potassium 3.7 MMOL/L (3.5-5.1); Sodium 142 MMOL/L (136-145); Total Protein 6.1 G/DL (6.4-8.3)
[2018-06-30] MEDS ORDERED: MORPHINE 4 MG/1 ML VIAL ONE (19:31)
[2018-06-30] MEDS ORDERED: ONDANSETRON 4 MG/2 ML VIAL IV PRN (20:21)
[2018-06-30] MEDS: SODIUM CHLORIDE 0.45% 1,000 ML IV SCH (20:46)
[2018-06-30] MEDS: PANTOPRAZOLE 40 MG TABLET PO SCH (21:44)
[2018-06-30] MEDS: MORPHINE 4 MG/1 ML VIAL IV PRN (23:45)
[2018-07-01] MEDS: MORPHINE 4 MG/1 ML VIAL IV PRN ×5 (04:05→23:38)
[2018-07-01 07:01] LABS: Basophils % 0.2 % (0.0-0.8); Hematocrit 33.6 VOL% (35.7-47.0); Hemoglobin 10.7 GM/DL (12.0-16.0); Immature Granulocytes % 0.7 %; Immature Granulocytes Absolute 0.06 #; Lymphocytes # 0.7 10*3/uL (1.4-4.0); Lymphocytes % 8.3 % (21.3-54.2); Mean Corpuscular HGB Conc 31.8 GM/DL (32-36); Mean Corpuscular Hemoglobin 28 PG (27-34); Mean Corpuscular Volume 87.5 FL (87-102); Mean Platelet Volume 10.2 FL (9.6-12.0); Monocytes # 0.1 10*3/uL (0.11-0.8); Monocytes % 1.4 % (1.7-12.7); Neutrophils # 7.5 10*3/uL (1.4-7.4); Neutrophils % 89.4 % (38.7-73.9); Platelet Count 293 T/CUMM (130-400); Red Blood Count 3.84 MC/CUMM (3.8-5.5); Red Cell Distribution Width 13.9 % (9.3-17.3); White Blood Count 8.3 T/CUMM (4-12)
[2018-07-01] MEDS: FEXOFENADINE 180 MG TABLET PO SCH (08:52)
[2018-07-01] MEDS: PANTOPRAZOLE 40 MG TABLET PO SCH ×2 (08:52→21:48)
[2018-07-01] MEDS: GABAPENTIN 300 MG CAPSULE PO SCH ×2 (08:53→21:48)
[2018-07-01 09:34] LABS: Apearance,Urine CLEAR (Clear); Bacteria,Urine Occasional /HPF (Few); Bilirubin,Urine Negative (Negative); Blood, Urine Negative (Negative); Glucose,Urine (UA) Negative (Negative); Ketones,Urine Negative (Negative); Nitrite,Urine Negative (Negative); Protein,Urine Negative; Squamous Epithelial Cell,Urine Occasional /HPF (0-10); Urine Color Yellow (Yellow); Urine Specific Gravity 1.008 (1.001-1.035); Urine Urobilinogen < 2.0 EU/DL (0.2-1.0)
[2018-07-01] MEDS: SODIUM CHLORIDE 0.45% 1,000 ML IV SCH ×2 (12:48→23:38)
[2018-07-01] MEDS ORDERED: TEMAZEPAM 15 MG CAPSULE PO PRN (16:10)
[2018-07-01] MEDS: LOSARTAN 25 MG TABLET PO SCH (21:48)
[2018-07-01] MEDS: tiZANidine 4 MG TABLET PO SCH (21:48)
[2018-07-01] MEDS: CITALOPRAM 20 MG TABLET PO SCH (21:48)
[2018-07-02] MEDS: SODIUM CHLORIDE 0.45% 1,000 ML IV SCH (03:14)
[2018-07-02 05:11] LABS: Basophils # 0.1 10*3/uL (0.0-0.2); Basophils % 0.5 % (0.0-0.8); Eosinophils # 0.1 10*3/uL (0.0-0.87); Eosinophils % 0.8 % (0.00-10.9); Hematocrit 36.9 VOL% (35.7-47.0); Hemoglobin 11.4 GM/DL (12.0-16.0); Immature Granulocytes % 0.4 %; Immature Granulocytes Absolute 0.05 #; Lymphocytes # 2.7 10*3/uL (1.4-4.0); Lymphocytes % 24.2 % (21.3-54.2); Mean Corpuscular HGB Conc 30.9 GM/DL (32-36); Mean Corpuscular Hemoglobin 28 PG (27-34); Mean Corpuscular Volume 89.8 FL (87-102); Mean Platelet Volume 11.2 FL (9.6-12.0); Monocytes # 0.9 10*3/uL (0.11-0.8); Neutrophils # 7.4 10*3/uL (1.4-7.4); Neutrophils % 66.1 % (38.7-73.9); Platelet Count 283 T/CUMM (130-400); Red Blood Count 4.11 MC/CUMM (3.8-5.5); Red Cell Distribution Width 14.1 % (9.3-17.3); White Blood Count 11.2 T/CUMM (4-12)
[2018-07-02 05:17] LABS: INR 0.9; PT Patient Result 10.2 SECS; Partial Thromboplastin Time 25.9 SECS (0-40)
[2018-07-02 05:34] LABS: Calcium 8.6 MG/DL (8.5-10.1); Osmolality,Calculated 282.1 MOS/KG (273-304); Potassium 3.9 MMOL/L (3.5-5.1)
[2018-07-02] MEDS: MORPHINE 4 MG/1 ML VIAL IV PRN ×4 (06:25→21:02)
[2018-07-02] MEDS: GABAPENTIN 300 MG CAPSULE PO SCH ×2 (08:45→21:04)
[2018-07-02] MEDS: PANTOPRAZOLE 40 MG TABLET PO SCH ×2 (09:41→21:08)
[2018-07-02] MEDS: FEXOFENADINE 180 MG TABLET PO SCH (09:41)
[2018-07-02] MEDS ORDERED: LIDOCAINE 2% 5 ML VIAL ONE (10:00)
[2018-07-02] MEDS ORDERED: PROPOFOL 200 MG/20 ML VIAL IV ONE (10:00)
[2018-07-02] MEDS: CITALOPRAM 20 MG TABLET PO SCH (21:04)
[2018-07-02] MEDS: tiZANidine 4 MG TABLET PO SCH (21:04)
[2018-07-02] MEDS: LOSARTAN 25 MG TABLET PO SCH (21:04)
[2018-07-03] MEDS: MORPHINE 4 MG/1 ML VIAL IV PRN ×4 (01:01→21:26)
[2018-07-03] MEDS: SODIUM CHLORIDE 0.45% 1,000 ML IV SCH ×3 (02:13→16:05)
[2018-07-03] MEDS: PANTOPRAZOLE 40 MG TABLET PO SCH ×2 (09:34→21:28)
[2018-07-03] MEDS: FEXOFENADINE 180 MG TABLET PO SCH (09:34)
[2018-07-03] MEDS: GABAPENTIN 300 MG CAPSULE PO SCH ×2 (09:34→21:28)
[2018-07-03] MEDS: NICOTINE 14 MG/24 HR PATCH TRANSDERM SCH (13:37)
[2018-07-03] MEDS: oxyCODONE/ACETAMINOPHEN 5-325 MG TABLET PO PRN ×2 (16:02→23:24)
[2018-07-03] MEDS: tiZANidine 4 MG TABLET PO SCH (21:28)
[2018-07-03] MEDS: LOSARTAN 25 MG TABLET PO SCH (21:28)
[2018-07-03] MEDS: ZALEPLON 5 MG CAPSULE PO PRN (21:28)
[2018-07-03] MEDS: CITALOPRAM 20 MG TABLET PO SCH (21:28)
[2018-07-04] MEDS: MORPHINE 4 MG/1 ML VIAL IV PRN ×3 (04:30→21:16)
[2018-07-04] MEDS: FEXOFENADINE 180 MG TABLET PO SCH (08:18)
[2018-07-04] MEDS: PANTOPRAZOLE 40 MG TABLET PO SCH ×2 (08:18→20:15)
[2018-07-04] MEDS: NICOTINE 14 MG/24 HR PATCH TRANSDERM SCH (08:18)
[2018-07-04] MEDS: GABAPENTIN 300 MG CAPSULE PO SCH ×2 (08:18→20:15)
[2018-07-04] MEDS: oxyCODONE/ACETAMINOPHEN 5-325 MG TABLET PO PRN ×2 (09:59→17:16)
[2018-07-04] MEDS: SODIUM CHLORIDE 0.45% 1,000 ML IV SCH ×2 (15:09→22:39)
[2018-07-04] MEDS: ZALEPLON 5 MG CAPSULE PO PRN (20:14)
[2018-07-04] MEDS: tiZANidine 4 MG TABLET PO SCH (20:15)
[2018-07-04] MEDS: LOSARTAN 25 MG TABLET PO SCH (20:15)
[2018-07-04] MEDS: CITALOPRAM 20 MG TABLET PO SCH (20:15)
[2018-07-05] MEDS: oxyCODONE/ACETAMINOPHEN 5-325 MG TABLET PO PRN ×2 (00:24→20:20)
[2018-07-05 04:30] LABS: Basophils # 0.1 10*3/uL (0.0-0.2); Basophils % 0.5 % (0.0-0.8); Eosinophils # 0.1 10*3/uL (0.0-0.87); Eosinophils % 1.5 % (0.00-10.9); Hematocrit 31.6 VOL% (35.7-47.0); Hemoglobin 9.8 GM/DL (12.0-16.0); Immature Granulocytes % 0.2 %; Immature Granulocytes Absolute 0.02 #; Lymphocytes # 1.9 10*3/uL (1.4-4.0); Lymphocytes % 19.5 % (21.3-54.2); Mean Corpuscular Hemoglobin 28 PG (27-34); Mean Corpuscular Volume 89.3 FL (87-102); Mean Platelet Volume 10.8 FL (9.6-12.0); Monocytes # 0.8 10*3/uL (0.11-0.8); Monocytes % 8.6 % (1.7-12.7); Neutrophils # 6.7 10*3/uL (1.4-7.4); Neutrophils % 69.7 % (38.7-73.9); Platelet Count 233 T/CUMM (130-400); Red Blood Count 3.54 MC/CUMM (3.8-5.5); White Blood Count 9.7 T/CUMM (4-12)
[2018-07-05 05:00] LABS: Calcium 8.9 MG/DL (8.5-10.1); Osmolality,Calculated 285.1 MOS/KG (273-304); Potassium 3.6 MMOL/L (3.5-5.1)
[2018-07-05] MEDS: MORPHINE 4 MG/1 ML VIAL IV PRN ×2 (05:02→09:11)
[2018-07-05] MEDS ORDERED: MAGNESIUM SULF RIDER 4 GM in PREMIX 1 EACH IV PRN (07:36)
[2018-07-05] MEDS ORDERED: cefOXitin 2,000 MG in SYRINGE 1 EACH IV ONE (08:48)
[2018-07-05] MEDS: MAGNESIUM SULF RIDER 2 GM in PREMIX 1 EACH IV PRN (09:12)
[2018-07-05] MEDS: GABAPENTIN 300 MG CAPSULE PO SCH ×2 (09:15→20:20)
[2018-07-05] MEDS: NICOTINE 14 MG/24 HR PATCH TRANSDERM SCH (09:15)
[2018-07-05] MEDS: FEXOFENADINE 180 MG TABLET PO SCH (09:15)
[2018-07-05] MEDS: PANTOPRAZOLE 40 MG TABLET PO SCH ×2 (09:15→20:19)
[2018-07-05] MEDS: ENOXAPARIN 40 MG/0.4 ML SYRINGE SUBCUT SCH (11:00)
[2018-07-05] MEDS ORDERED: LIDOCAINE 1%/EPI INJ 20 ML VIAL ONE (12:31)
[2018-07-05] MEDS: SODIUM CHLORIDE 0.45% 1,000 ML IV SCH (13:19)
[2018-07-05] MEDS ORDERED: TISSUE ADHESIVE 1 EACH APPLICATOR TOP ONE (13:43)
[2018-07-05] MEDS ORDERED: PROPOFOL 200 MG/20 ML VIAL IV ONE (14:27)
[2018-07-05] MEDS ORDERED: fentaNYL 100 MCG/2 ML VIAL ONE (14:28)
[2018-07-05] MEDS ORDERED: MIDAZOLAM 2 MG/2 ML VIAL ONE (14:28)
[2018-07-05] MEDS ORDERED: GLYCOPYRROLATE 0.4 MG/2 ML VIAL ONE (14:28)
[2018-07-05] MEDS ORDERED: ONDANSETRON 4 MG/2 ML VIAL ONE ×2 (14:28→14:47)
[2018-07-05] MEDS ORDERED: DEXAMETHASONE 10 MG/1 ML VIAL ONE (14:28)
[2018-07-05] MEDS ORDERED: ePHEDrine 50 MG/ML AMP ONE (14:28)
[2018-07-05] MEDS ORDERED: SEVOFLURANE 1 UNIT/15 MINUTE INH ONE (14:28)
[2018-07-05] MEDS ORDERED: ROCURONIUM 100 MG/10 ML VIAL IV ONE (14:29)
[2018-07-05] MEDS ORDERED: PHENYLEPHRINE 1 MG/10 ML SYRINGE IV ONE (14:29)
[2018-07-05] MEDS ORDERED: NEOSTIGMINE 10 MG/10 ML VIAL ONE (14:29)
[2018-07-05] MEDS ORDERED: LACTATED RINGERS 1,000 ML IV ONE (14:29)
[2018-07-05] MEDS ORDERED: ONDANSETRON 4 MG/2 ML VIAL IV PRN (14:44)
[2018-07-05] MEDS ORDERED: HYDROmorphone 2 MG/1 ML VIAL ONE (14:47)
[2018-07-05] MEDS: HYDROmorphone 2 MG/1 ML VIAL IV PRN ×2 (14:50→14:55)
[2018-07-05] MEDS ORDERED: POLYVINYL ALCOHOL 1.4% OPH SOLN 15 ML BOTTLE BOTH EYES PRN (16:32)
[2018-07-05] MEDS ORDERED: hydrALAZINE 20 MG/1 ML VIAL IV PRN (16:37)
[2018-07-05] MEDS: LOSARTAN 25 MG TABLET PO SCH (20:19)
[2018-07-05] MEDS: CITALOPRAM 20 MG TABLET PO SCH (20:20)
[2018-07-05] MEDS: tiZANidine 4 MG TABLET PO SCH (20:20)
[2018-07-05] MEDS: ZALEPLON 5 MG CAPSULE PO PRN (20:20)
[2018-07-06] MEDS: MORPHINE 4 MG/1 ML VIAL IV PRN (01:25)
[2018-07-06] MEDS: SODIUM CHLORIDE 0.45% 1,000 ML IV SCH (02:03)
[2018-07-06 04:36] LABS: Basophils % 0.3 % (0.0-0.8); Hematocrit 32.9 VOL% (35.7-47.0); Hemoglobin 10.4 GM/DL (12.0-16.0); Immature Granulocytes % 0.4 %; Immature Granulocytes Absolute 0.05 #; Lymphocytes # 0.9 10*3/uL (1.4-4.0); Lymphocytes % 6.7 % (21.3-54.2); Mean Corpuscular HGB Conc 31.6 GM/DL (32-36); Mean Corpuscular Hemoglobin 28 PG (27-34); Mean Corpuscular Volume 88.7 FL (87-102); Mean Platelet Volume 10.7 FL (9.6-12.0); Monocytes # 0.6 10*3/uL (0.11-0.8); Monocytes % 4.1 % (1.7-12.7); Neutrophils # 11.8 10*3/uL (1.4-7.4); Neutrophils % 88.5 % (38.7-73.9); Platelet Count 265 T/CUMM (130-400); Red Blood Count 3.71 MC/CUMM (3.8-5.5); Red Cell Distribution Width 14.1 % (9.3-17.3); White Blood Count 13.3 T/CUMM (4-12)
[2018-07-06 04:49] LABS: Calcium 8.2 MG/DL (8.5-10.1); Osmolality,Calculated 282.7 MOS/KG (273-304); Potassium 4.3 MMOL/L (3.5-5.1)
[2018-07-06] MEDS: GABAPENTIN 300 MG CAPSULE PO SCH (09:28)
[2018-07-06] MEDS: FEXOFENADINE 180 MG TABLET PO SCH (09:28)
[2018-07-06] MEDS: PANTOPRAZOLE 40 MG TABLET PO SCH (09:29)
[2018-07-06] MEDS: ENOXAPARIN 40 MG/0.4 ML SYRINGE SUBCUT SCH (09:29)
[2018-07-06] MEDS: MAGNESIUM SULF RIDER 2 GM in PREMIX 1 EACH IV PRN (09:29)
[2018-07-06] MEDS: NICOTINE 14 MG/24 HR PATCH TRANSDERM SCH (09:33)
[2018-07-06 10:56] VITALS: BP 112/62
[2018-07-06] MEDS: oxyCODONE/ACETAMINOPHEN 5-325 MG TABLET PO PRN (13:50)
== END 2018-07-06 14:37 | disposition home or self-care (01) | DRG 330 ==
LOC: N.ED 15:44 → SUATTDRO 20:21 → N.EDINP 20:21 → N.3E 20:45
PROVIDERS: ADMIT Internal Medicine; ATTEND Internal Medicine

== ENCOUNTER 2018-08-19 10:47 | Inpatient (IN) ==
[2018-08-19 11:36] LABS: Basophils # 0.1 10*3/uL (0.0-0.2); Basophils % 0.6 % (0.0-0.8); Eosinophils # 0.2 10*3/uL (0.0-0.87); Eosinophils % 1.6 % (0.00-10.9); Hematocrit 41.1 VOL% (35.7-47.0); Hemoglobin 12.9 GM/DL (12.0-16.0); Immature Granulocytes % 0.5 %; Immature Granulocytes Absolute 0.07 #; Lymphocytes # 2.5 10*3/uL (1.4-4.0); Lymphocytes % 16.5 % (21.3-54.2); Mean Corpuscular HGB Conc 31.4 GM/DL (32-36); Mean Corpuscular Hemoglobin 28 PG (27-34); Mean Platelet Volume 10.4 FL (9.6-12.0); Monocytes # 0.7 10*3/uL (0.11-0.8); Monocytes % 4.4 % (1.7-12.7); Neutrophils # 11.7 10*3/uL (1.4-7.4); Neutrophils % 76.4 % (38.7-73.9); Platelet Count 321 T/CUMM (130-400); Red Blood Count 4.62 MC/CUMM (3.8-5.5); Red Cell Distribution Width 15.2 % (9.3-17.3); White Blood Count 15.2 T/CUMM (4-12)
[2018-08-19 11:55] LABS: Calcium 9.9 MG/DL (8.5-10.1); Potassium 4.5 MMOL/L (3.5-5.1)
[2018-08-19] MEDS ORDERED: ceFAZolin 1,000 MG VIAL ONE (11:59)
[2018-08-19] MEDS: LACTATED RINGERS 1,000 ML IV SCH ×4 (12:30→22:57)
[2018-08-19] MEDS ORDERED: ALBUMIN 5% 12.5 GM/250 ML VIAL IV ONE (13:39)
[2018-08-19] MEDS ORDERED: TISSUE ADHESIVE 1 EACH APPLICATOR TOP ONE (14:13)
[2018-08-19 14:42] LABS: Apearance,Urine Slightly Hazy (Clear); Bacteria,Urine Moderate /HPF (Few); Bilirubin,Urine Negative (Negative); Blood, Urine Negative (Negative); Glucose,Urine (UA) Negative (Negative); Granular Casts,Urine 3 /LPF (0-1); Hyaline Casts,Urine 22 /LPF (0-3); Ketones,Urine Negative (Negative); Mucus,Urine Occasional /LPF (Occasional); Nitrite,Urine Negative (Negative); Protein,Urine 30 MG/DL; RBC,Urine 3 /HPF (0-4); Squamous Epithelial Cell,Urine Occasional /HPF (0-10); Urine Specific Gravity 1.024 (1.001-1.035); WBC,Urine 18 /HPF (0-6)
[2018-08-19] MEDS ORDERED: SEVOFLURANE 1 UNIT/15 MINUTE INH ONE (14:42)
[2018-08-19] MEDS ORDERED: PROPOFOL 200 MG/20 ML VIAL IV ONE (14:42)
[2018-08-19 14:43] LABS: Urine Color Dark yellow (Yellow)
[2018-08-19] MEDS ORDERED: MIDAZOLAM 2 MG/2 ML VIAL ONE (14:43)
[2018-08-19] MEDS ORDERED: ONDANSETRON 4 MG/2 ML VIAL ONE (14:43)
[2018-08-19] MEDS ORDERED: LACTATED RINGERS 1,000 ML IV ONE (14:43)
[2018-08-19] MEDS ORDERED: PHENYLEPHRINE 1 MG/10 ML SYRINGE IV ONE (14:43)
[2018-08-19] MEDS ORDERED: ACETAMINOPHEN 1,000 MG/100 ML VIAL IV ONE (14:43)
[2018-08-19] MEDS ORDERED: ROCURONIUM 100 MG/10 ML VIAL IV ONE (14:43)
[2018-08-19] MEDS ORDERED: ONDANSETRON 4 MG/2 ML VIAL IV PRN ×2 (14:47→15:51)
[2018-08-19] MEDS: HYDROmorphone 2 MG/1 ML VIAL IV PRN ×6 (14:50→22:55)
[2018-08-19] MEDS ORDERED: ROPIVACAINE 0.5% 30 ML VIAL ONE (15:17)
[2018-08-19] MEDS ORDERED: HYDROmorphone 2 MG/1 ML VIAL ONE (15:19)
[2018-08-19] MEDS ORDERED: HYDROmorphone 2 MG/1 ML VIAL IV ONE (15:20)
[2018-08-19] MEDS ORDERED: PROMETHAZINE 25 MG/1 ML VIAL IM PRN (15:51)
[2018-08-19] MEDS: HEPARIN 5,000 UNIT/1 ML VIAL SUBCUT SCH ×2 (16:23→23:01)
[2018-08-19] MEDS: cefOXitin 2,000 MG in SYRINGE 1 EACH IV SCH (17:58)
[2018-08-19] MEDS: CITALOPRAM 20 MG TABLET PO SCH (20:18)
[2018-08-19] MEDS: PANTOPRAZOLE 40 MG TABLET PO SCH (20:18)
[2018-08-19] MEDS: GABAPENTIN 300 MG CAPSULE PO SCH (20:18)
[2018-08-19] MEDS: tiZANidine 4 MG TABLET PO SCH (20:18)
[2018-08-20] MEDS: cefOXitin 2,000 MG in SYRINGE 1 EACH IV SCH ×2 (00:01→05:26)
[2018-08-20] MEDS: HYDROmorphone 2 MG/1 ML VIAL IV PRN ×2 (01:15→10:56)
[2018-08-20] MEDS: oxyCODONE/ACETAMINOPHEN 5-325 MG TABLET PO PRN ×2 (03:26→07:34)
[2018-08-20 05:12] LABS: Basophils % 0.4 % (0.0-0.8); Eosinophils # 0.3 10*3/uL (0.0-0.87); Hematocrit 30.8 VOL% (35.7-47.0); Hemoglobin 9.5 GM/DL (12.0-16.0); Immature Granulocytes % 0.3 %; Immature Granulocytes Absolute 0.03 #; Lymphocytes # 1.6 10*3/uL (1.4-4.0); Lymphocytes % 17.1 % (21.3-54.2); Mean Corpuscular HGB Conc 30.8 GM/DL (32-36); Mean Corpuscular Hemoglobin 28 PG (27-34); Mean Corpuscular Volume 90.3 FL (87-102); Mean Platelet Volume 11.4 FL (9.6-12.0); Monocytes # 0.5 10*3/uL (0.11-0.8); Monocytes % 5.2 % (1.7-12.7); Platelet Count 190 T/CUMM (130-400); Red Blood Count 3.41 MC/CUMM (3.8-5.5); Red Cell Distribution Width 15.3 % (9.3-17.3); White Blood Count 9.4 T/CUMM (4-12)
[2018-08-20] MEDS: LACTATED RINGERS 1,000 ML IV SCH ×3 (05:29→19:51)
[2018-08-20 05:41] LABS: Calcium 8.5 MG/DL (8.5-10.1); Osmolality,Calculated 279.5 MOS/KG (273-304); Potassium 4.4 MMOL/L (3.5-5.1)
[2018-08-20] MEDS: HEPARIN 5,000 UNIT/1 ML VIAL SUBCUT SCH ×2 (07:35→16:12)
[2018-08-20] MEDS: GABAPENTIN 300 MG CAPSULE PO SCH ×2 (11:05→20:20)
[2018-08-20] MEDS: PANTOPRAZOLE 40 MG TABLET PO SCH ×2 (11:05→20:20)
[2018-08-20] MEDS: FEXOFENADINE 180 MG TABLET PO SCH (11:05)
[2018-08-20] MEDS ORDERED: MEPERIDINE 50 MG TABLET PO PRN (14:20)
[2018-08-20] MEDS: MEPERIDINE 50 MG TABLET PO PRN ×2 (15:55→20:19)
[2018-08-20] MEDS: cefTRIAXone 1,000 MG in SYRINGE 1 EACH IV SCH (16:08)
[2018-08-20] MEDS: CITALOPRAM 20 MG TABLET PO SCH (20:20)
[2018-08-20] MEDS: tiZANidine 4 MG TABLET PO SCH (20:20)
[2018-08-21] MEDS: MEPERIDINE 50 MG TABLET PO PRN ×4 (00:23→19:28)
[2018-08-21] MEDS: HEPARIN 5,000 UNIT/1 ML VIAL SUBCUT SCH ×3 (00:23→17:14)
[2018-08-21] MEDS: LACTATED RINGERS 1,000 ML IV SCH ×2 (00:23→17:15)
[2018-08-21 04:39] LABS: Basophils % 0.6 % (0.0-0.8); Eosinophils # 0.3 10*3/uL (0.0-0.87); Eosinophils % 3.9 % (0.00-10.9); Hematocrit 27.6 VOL% (35.7-47.0); Hemoglobin 8.5 GM/DL (12.0-16.0); Immature Granulocytes % 0.3 %; Immature Granulocytes Absolute 0.02 #; Lymphocytes % 30.7 % (21.3-54.2); Mean Corpuscular HGB Conc 30.8 GM/DL (32-36); Mean Corpuscular Hemoglobin 28 PG (27-34); Mean Corpuscular Volume 90.8 FL (87-102); Mean Platelet Volume 11.2 FL (9.6-12.0); Monocytes # 0.6 10*3/uL (0.11-0.8); Monocytes % 8.3 % (1.7-12.7); Neutrophils # 3.7 10*3/uL (1.4-7.4); Neutrophils % 56.2 % (38.7-73.9); Platelet Count 162 T/CUMM (130-400); Red Blood Count 3.04 MC/CUMM (3.8-5.5); Red Cell Distribution Width 14.7 % (9.3-17.3); White Blood Count 6.6 T/CUMM (4-12)
[2018-08-21 04:59] LABS: Osmolality,Calculated 282.1 MOS/KG (273-304); Potassium 3.7 MMOL/L (3.5-5.1)
[2018-08-21] MEDS ORDERED: MAGNESIUM SULF RIDER 4 GM in PREMIX 1 EACH IV PRN (08:04)
[2018-08-21] MEDS ORDERED: MAGNESIUM SULF RIDER 2 GM in PREMIX 1 EACH IV PRN (08:04)
[2018-08-21] MEDS: FEXOFENADINE 180 MG TABLET PO SCH (09:45)
[2018-08-21] MEDS: GABAPENTIN 300 MG CAPSULE PO SCH ×2 (09:45→21:22)
[2018-08-21] MEDS: PANTOPRAZOLE 40 MG TABLET PO SCH ×2 (09:45→21:22)
[2018-08-21] MEDS: cefTRIAXone 1,000 MG in SYRINGE 1 EACH IV SCH (19:29)
[2018-08-21] MEDS: tiZANidine 4 MG TABLET PO SCH (21:22)
[2018-08-21] MEDS: CITALOPRAM 20 MG TABLET PO SCH (21:22)
[2018-08-22] MEDS: MEPERIDINE 50 MG TABLET PO PRN ×2 (00:35→05:48)
[2018-08-22 04:48] LABS: Basophils % 0.4 % (0.0-0.8); Eosinophils # 0.3 10*3/uL (0.0-0.87); Eosinophils % 4.3 % (0.00-10.9); Hematocrit 26.3 VOL% (35.7-47.0); Hemoglobin 8.2 GM/DL (12.0-16.0); Immature Granulocytes % 0.3 %; Immature Granulocytes Absolute 0.02 #; Lymphocytes # 1.8 10*3/uL (1.4-4.0); Lymphocytes % 25.6 % (21.3-54.2); Mean Corpuscular HGB Conc 31.2 GM/DL (32-36); Mean Corpuscular Hemoglobin 28 PG (27-34); Mean Platelet Volume 11.4 FL (9.6-12.0); Monocytes # 0.6 10*3/uL (0.11-0.8); Neutrophils # 4.4 10*3/uL (1.4-7.4); Neutrophils % 61.4 % (38.7-73.9); Platelet Count 172 T/CUMM (130-400); Red Blood Count 2.89 MC/CUMM (3.8-5.5); Red Cell Distribution Width 14.8 % (9.3-17.3); White Blood Count 7.1 T/CUMM (4-12)
[2018-08-22 05:07] LABS: Calcium 8.1 MG/DL (8.5-10.1); Potassium 4.3 MMOL/L (3.5-5.1)
[2018-08-22] MEDS: GABAPENTIN 300 MG CAPSULE PO SCH (08:42)
[2018-08-22] MEDS: PANTOPRAZOLE 40 MG TABLET PO SCH (08:42)
[2018-08-22] MEDS: FEXOFENADINE 180 MG TABLET PO SCH (08:42)
[2018-08-22 08:55] VITALS: BP 133/50
== END 2018-08-22 12:26 | disposition home or self-care (01) | DRG 330 ==
LOC: N.OR 10:47 → N.SDSINP 12:58 → N.3E 15:49
PROVIDERS: ADMIT Surgery; ATTEND Surgery

== ENCOUNTER 2019-01-18 05:46 | Inpatient (IN) ==
[2019-01-12 12:06] LABS: Basophils # 0.1 10*3/uL (0.0-0.2); Basophils % 0.9 % (0.0-0.8); Eosinophils # 0.3 10*3/uL (0.0-0.87); Eosinophils % 2.2 % (0.00-10.9); Hematocrit 35.6 VOL% (35.7-47.0); Hemoglobin 11.2 GM/DL (12.0-16.0); Immature Granulocytes % 0.5 %; Immature Granulocytes Absolute 0.06 #; Lymphocytes # 1.8 10*3/uL (1.4-4.0); Lymphocytes % 16.5 % (21.3-54.2); Mean Corpuscular HGB Conc 31.5 GM/DL (32-36); Mean Corpuscular Volume 92.7 FL (87-102); Mean Platelet Volume 10.4 FL (9.6-12.0); Monocytes % 4.9 % (1.7-12.7); Platelet Count 232 T/CUMM (130-400); Red Blood Count 3.84 MC/CUMM (3.8-5.5); Red Cell Distribution Width 14.6 % (9.3-17.3); White Blood Count 11.2 T/CUMM (4-12)
[2019-01-12 12:27] LABS: Osmolality,Calculated 285.3 MOS/KG (273-304)
[2019-01-18] MEDS ORDERED: ceFAZolin 1,000 MG in SYRINGE 1 EACH IV ONE (06:00)
[2019-01-18] MEDS ORDERED: BUPIVACAINE 0.25% /EPI 10 ML VIAL ONE (06:12)
[2019-01-18] MEDS ORDERED: LIDOCAINE 1%/EPI INJ 20 ML VIAL ONE (06:12)
[2019-01-18] MEDS ORDERED: ceFAZolin 1,000 MG VIAL ONE (07:06)
[2019-01-18] MEDS: LACTATED RINGERS 1,000 ML IV SCH ×3 (07:20→12:06)
[2019-01-18] MEDS ORDERED: TISSUE ADHESIVE 1 EACH APPLICATOR TOP ONE (09:22)
[2019-01-18] MEDS ORDERED: MEPERIDINE 25 MG/1 ML VIAL IV PRN (09:58)
[2019-01-18] MEDS ORDERED: ONDANSETRON 4 MG/2 ML VIAL IV PRN (09:58)
[2019-01-18] MEDS ORDERED: PROPOFOL 200 MG/20 ML VIAL IV ONE (09:58)
[2019-01-18] MEDS ORDERED: ETOMIDATE 40 MG/20 ML VIAL IV ONE (09:59)
[2019-01-18] MEDS ORDERED: DEXAMETHASONE 4 MG/1 ML VIAL ONE (09:59)
[2019-01-18] MEDS ORDERED: DESFLURANE 1 UNIT/15 MINUTE INH ONE (09:59)
[2019-01-18] MEDS ORDERED: GLYCOPYRROLATE 0.4 MG/2 ML VIAL ONE (10:00)
[2019-01-18] MEDS ORDERED: ACETAMINOPHEN 1,000 MG/100 ML VIAL IV ONE (10:00)
[2019-01-18] MEDS ORDERED: LACTATED RINGERS 1,000 ML IV ONE (10:00)
[2019-01-18] MEDS ORDERED: NEOSTIGMINE 10 MG/10 ML VIAL ONE (10:00)
[2019-01-18] MEDS ORDERED: ROCURONIUM 100 MG/10 ML VIAL IV ONE (10:00)
[2019-01-18] MEDS: HYDROmorphone 2 MG/1 ML VIAL IV PRN ×6 (10:00→18:14)
[2019-01-18] MEDS ORDERED: MEPERIDINE 50 MG PO PRN (11:00)
[2019-01-18] MEDS ORDERED: tiZANidine 4 MG TABLET PO PRN (11:00)
[2019-01-18] MEDS ORDERED: PROMETHAZINE 25 MG/1 ML VIAL IM PRN (11:00)
[2019-01-18] MEDS: KETOROLAC 15 MG/1 ML VIAL IV PRN ×2 (12:03→20:27)
[2019-01-18 12:15] LABS: Basophils # 0.1 10*3/uL (0.0-0.2); Basophils % 0.6 % (0.0-0.8); Eosinophils % 0.2 % (0.00-10.9); Hematocrit 38.5 VOL% (35.7-47.0); Hemoglobin 12.1 GM/DL (12.0-16.0); Immature Granulocytes % 0.7 %; Immature Granulocytes Absolute 0.14 #; Lymphocytes # 0.9 10*3/uL (1.4-4.0); Lymphocytes % 4.3 % (21.3-54.2); Mean Corpuscular HGB Conc 31.4 GM/DL (32-36); Mean Corpuscular Volume 93.7 FL (87-102); Monocytes % 1.9 % (1.7-12.7); Neutrophils % 92.3 % (38.7-73.9); Platelet Count 227 T/CUMM (130-400); Red Blood Count 4.11 MC/CUMM (3.8-5.5); Red Cell Distribution Width 14.4 % (9.3-17.3); White Blood Count 19.9 T/CUMM (4-12)
[2019-01-18 12:34] LABS: Hypochromasia 1+; Lymphocytes 2 % (20-55); Platelet Estimate Adequate; Segmented Neutrophils 98 % (50-85); Total Cells Counted 100
[2019-01-18 12:40] LABS: Calcium 8.6 MG/DL (8.5-10.1); Osmolality,Calculated 283.5 MOS/KG (273-304)
[2019-01-18] MEDS: ONDANSETRON 4 MG/2 ML VIAL IV PRN (18:15)
[2019-01-18] MEDS: GABAPENTIN 300 MG CAPSULE PO SCH (20:25)
[2019-01-18] MEDS: CITALOPRAM 20 MG TABLET PO SCH (20:25)
[2019-01-18] MEDS ORDERED: CELECOXIB 50 MG PO SCH (21:00)
[2019-01-19] MEDS: HYDROmorphone 2 MG/1 ML VIAL IV PRN ×4 (00:16→16:58)
[2019-01-19] MEDS: LACTATED RINGERS 1,000 ML IV SCH (01:39)
[2019-01-19 05:51] LABS: Basophils # 0.1 10*3/uL (0.0-0.2); Basophils % 0.5 % (0.0-0.8); Eosinophils # 0.1 10*3/uL (0.0-0.87); Eosinophils % 0.4 % (0.00-10.9); Hematocrit 32.5 VOL% (35.7-47.0); Hemoglobin 10.2 GM/DL (12.0-16.0); Immature Granulocytes % 0.5 %; Immature Granulocytes Absolute 0.08 #; Lymphocytes # 1.6 10*3/uL (1.4-4.0); Lymphocytes % 9.1 % (21.3-54.2); Mean Corpuscular HGB Conc 31.4 GM/DL (32-36); Mean Corpuscular Volume 93.9 FL (87-102); Mean Platelet Volume 11.2 FL (9.6-12.0); Monocytes % 5.8 % (1.7-12.7); Neutrophils % 83.7 % (38.7-73.9); Platelet Count 211 T/CUMM (130-400); Red Blood Count 3.46 MC/CUMM (3.8-5.5); Red Cell Distribution Width 14.4 % (9.3-17.3); White Blood Count 17.3 T/CUMM (4-12)
[2019-01-19 06:09] LABS: Calcium 8.9 MG/DL (8.5-10.1); Osmolality,Calculated 283.4 MOS/KG (273-304)
[2019-01-19] MEDS: GABAPENTIN 300 MG CAPSULE PO SCH ×2 (08:49→21:26)
[2019-01-19] MEDS: ENOXAPARIN 40 MG/0.4 ML SYRINGE SUBCUT SCH (08:49)
[2019-01-19] MEDS: POTASSIUM CHLORIDE 10 MEQ TABLET PO SCH (08:49)
[2019-01-19] MEDS: CHOLECALCIFEROL 1,000 UNIT TABLET PO SCH (08:49)
[2019-01-19] MEDS: CITALOPRAM 20 MG TABLET PO SCH (21:26)
[2019-01-20] MEDS: ONDANSETRON 4 MG/2 ML VIAL IV PRN ×3 (01:23→23:13)
[2019-01-20 05:21] LABS: Basophils % 0.5 % (0.0-0.8); Eosinophils % 0.7 % (0.00-10.9); Hemoglobin 10.6 GM/DL (12.0-16.0); Immature Granulocytes % 0.5 %; Immature Granulocytes Absolute 0.03 #; Lymphocytes # 0.5 10*3/uL (1.4-4.0); Lymphocytes % 8.6 % (21.3-54.2); Mean Corpuscular HGB Conc 31.2 GM/DL (32-36); Mean Corpuscular Volume 94.2 FL (87-102); Mean Platelet Volume 10.9 FL (9.6-12.0); Monocytes % 6.7 % (1.7-12.7); Platelet Count 194 T/CUMM (130-400); Red Blood Count 3.61 MC/CUMM (3.8-5.5); Red Cell Distribution Width 14.5 % (9.3-17.3)
[2019-01-20 05:42] LABS: Calcium 8.8 MG/DL (8.5-10.1); Osmolality,Calculated 280.8 MOS/KG (273-304)
[2019-01-20 05:46] LABS: Hypochromasia 1+; Ovalocytes Slight; Platelet Estimate Adequate
[2019-01-20] MEDS ORDERED: MAGNESIUM SULF RIDER 2 GM in PREMIX 1 EACH IV PRN (09:15)
[2019-01-20] MEDS ORDERED: MAGNESIUM SULF RIDER 4 GM in PREMIX 1 EACH IV PRN (09:15)
[2019-01-20] MEDS: LOSARTAN 50 MG TABLET PO SCH (09:45)
[2019-01-20] MEDS: GABAPENTIN 300 MG CAPSULE PO SCH ×2 (09:45→20:19)
[2019-01-20] MEDS: POTASSIUM CHLORIDE 10 MEQ TABLET PO SCH (09:46)
[2019-01-20] MEDS: ENOXAPARIN 40 MG/0.4 ML SYRINGE SUBCUT SCH (09:46)
[2019-01-20] MEDS: CHOLECALCIFEROL 1,000 UNIT TABLET PO SCH (09:46)
[2019-01-20] MEDS: HYDROmorphone 2 MG/1 ML VIAL IV PRN ×3 (10:01→23:13)
[2019-01-20] MEDS: LACTATED RINGERS 1,000 ML IV SCH ×2 (11:07→23:16)
[2019-01-20] MEDS: CITALOPRAM 20 MG TABLET PO SCH (20:19)
[2019-01-21] MEDS: HYDROmorphone 2 MG/1 ML VIAL IV PRN (03:47)
[2019-01-21] MEDS: LACTATED RINGERS 1,000 ML IV SCH ×3 (03:50→17:00)
[2019-01-21 06:02] LABS: Basophils # 0.1 10*3/uL (0.0-0.2); Basophils % 1.1 % (0.0-0.8); Eosinophils % 0.4 % (0.00-10.9); Hematocrit 32.7 VOL% (35.7-47.0); Hemoglobin 10.4 GM/DL (12.0-16.0); Immature Granulocytes % 0.8 %; Immature Granulocytes Absolute 0.06 #; Lymphocytes # 0.6 10*3/uL (1.4-4.0); Lymphocytes % 8.1 % (21.3-54.2); Mean Corpuscular HGB Conc 31.8 GM/DL (32-36); Mean Platelet Volume 11.1 FL (9.6-12.0); Monocytes % 9.4 % (1.7-12.7); Neutrophils % 80.2 % (38.7-73.9); Platelet Count 244 T/CUMM (130-400); Red Blood Count 3.48 MC/CUMM (3.8-5.5); Red Cell Distribution Width 14.5 % (9.3-17.3); White Blood Count 7.3 T/CUMM (4-12)
[2019-01-21 06:22] LABS: Calcium 8.9 MG/DL (8.5-10.1)
[2019-01-21 06:33] LABS: Band Neutrophils 49 % (0-10); Hypochromasia Slight; Lymphocytes 4 % (20-55); Metamyelocytes 21 %; Myelocytes 1 %; Nucleated Red Blood Cells 1 (0-5); Platelet Estimate Normal; Segmented Neutrophils 18 % (50-85); Total Cells Counted 100
[2019-01-21] MEDS ORDERED: LACTATED RINGERS 1,000 ML IV ONE ×2 (06:42→18:39)
[2019-01-21 08:15] LABS: ABG Oxygen Saturation 87.9 % (95-100); ABG PCO2 46.3 MM HG (35-48); ABG PH 7.383 (7.35-7.45); ABG PO2 54.2 MM HG (80-95); ABG TCO2 25.1 MMOL/L (23-27); Allen Test Positive
[2019-01-21] MEDS: LOSARTAN 50 MG TABLET PO SCH (08:50)
[2019-01-21] MEDS: GABAPENTIN 300 MG CAPSULE PO SCH ×2 (08:50→23:51)
[2019-01-21] MEDS: CHOLECALCIFEROL 1,000 UNIT TABLET PO SCH (08:50)
[2019-01-21] MEDS: ENOXAPARIN 40 MG/0.4 ML SYRINGE SUBCUT SCH (08:50)
[2019-01-21] MEDS: POTASSIUM CHLORIDE 10 MEQ TABLET PO SCH (08:50)
[2019-01-21] MEDS: ACETAMINOPHEN 500 MG TABLET PO PRN ×3 (08:50→23:52)
[2019-01-21] MEDS ORDERED: HYDROmorphone 2 MG/1 ML VIAL IM PRN (08:59)
[2019-01-21] MEDS: cefTRIAXone 1,000 MG in SYRINGE 1 EACH IV SCH (10:30)
[2019-01-21] MEDS: AZITHROMYCIN INJ 500 MG in SODIUM CHLORIDE 0.9% 250 ML IV SCH (10:40)
[2019-01-21] MEDS: ALBUTEROL/IPRATROPIUM 3 ML NEB RESP TX SCH ×2 (12:21→19:17)
[2019-01-21] MEDS: ALBUTEROL 2.5 MG/3 ML NEB RESP TX PRN (12:41)
[2019-01-21 17:35] LABS: Calcium 8.7 MG/DL (8.5-10.1); Osmolality,Calculated 286.8 MOS/KG (273-304)
[2019-01-21 19:31] LABS: Apearance,Urine CLOUDY (Clear); Bilirubin,Urine Negative (Negative); Blood, Urine Negative (Negative); Glucose,Urine (UA) Negative (Negative); Ketones,Urine Negative (Negative); Mucus,Urine Occasional /LPF (Occasional); Nitrite,Urine Negative (Negative); Protein,Urine 30 MG/DL; RBC,Urine <1 /HPF (0-4); Squamous Epithelial Cell,Urine Few /HPF (0-10); Urine Color Amber (Yellow); Urine Urobilinogen < 2.0 EU/DL (0.2-1.0); WBC,Urine <1 /HPF (0-6)
[2019-01-21] MEDS: CITALOPRAM 20 MG TABLET PO SCH (23:51)
[2019-01-22] MEDS: ALBUTEROL/IPRATROPIUM 3 ML NEB RESP TX SCH ×3 (01:02→13:41)
[2019-01-22] MEDS: LACTATED RINGERS 1,000 ML IV SCH ×4 (03:05→22:21)
[2019-01-22 04:36] LABS: Basophils # 0.1 10*3/uL (0.0-0.2); Basophils % 0.8 % (0.0-0.8); Eosinophils # 0.2 10*3/uL (0.0-0.87); Eosinophils % 3.4 % (0.00-10.9); Hematocrit 28.1 VOL% (35.7-47.0); Hemoglobin 8.8 GM/DL (12.0-16.0); Immature Granulocytes % 0.6 %; Immature Granulocytes Absolute 0.04 #; Lymphocytes # 0.6 10*3/uL (1.4-4.0); Mean Corpuscular HGB Conc 31.3 GM/DL (32-36); Mean Platelet Volume 10.5 FL (9.6-12.0); Monocytes % 7.2 % (1.7-12.7); Platelet Count 200 T/CUMM (130-400); Red Blood Count 2.99 MC/CUMM (3.8-5.5); Red Cell Distribution Width 14.1 % (9.3-17.3); White Blood Count 6.4 T/CUMM (4-12)
[2019-01-22 05:03] LABS: Calcium 8.7 MG/DL (8.5-10.1); Osmolality,Calculated 290.4 MOS/KG (273-304)
[2019-01-22 05:38] LABS: Band Neutrophils 11 % (0-10); Eosinophils 6 % (0-10); Lymphocytes 10 % (20-55); Metamyelocytes 12 %; Myelocytes 1 %; Segmented Neutrophils 51 % (50-85); Total Cells Counted 100
[2019-01-22 05:40] LABS: Hypochromasia 1+; Platelet Estimate Normal; Polychromasia Few
[2019-01-22] MEDS: GABAPENTIN 300 MG CAPSULE PO SCH ×2 (09:00→21:19)
[2019-01-22] MEDS: cefTRIAXone 1,000 MG in SYRINGE 1 EACH IV SCH (09:00)
[2019-01-22] MEDS: POTASSIUM CHLORIDE 10 MEQ TABLET PO SCH (09:00)
[2019-01-22] MEDS: ENOXAPARIN 40 MG/0.4 ML SYRINGE SUBCUT SCH (09:00)
[2019-01-22] MEDS: CHOLECALCIFEROL 1,000 UNIT TABLET PO SCH (09:00)
[2019-01-22] MEDS: LOSARTAN 50 MG TABLET PO SCH (09:00)
[2019-01-22] MEDS: AZITHROMYCIN INJ 500 MG in SODIUM CHLORIDE 0.9% 250 ML IV SCH (09:10)
[2019-01-22] MEDS: ALBUTEROL 2.5 MG/3 ML NEB RESP TX PRN (13:41)
[2019-01-22] MEDS: ALBUTEROL 2.5 MG/3 ML NEB RESP TX SCH ×2 (13:41→20:39)
[2019-01-22] MEDS: ACETAMINOPHEN 500 MG TABLET PO PRN (15:50)
[2019-01-22] MEDS: ONDANSETRON 4 MG/2 ML VIAL IV PRN (18:00)
[2019-01-22] MEDS ORDERED: LACTATED RINGERS 1,000 ML IV ONE (19:00)
[2019-01-22] MEDS: CITALOPRAM 20 MG TABLET PO SCH (21:19)
[2019-01-23] MEDS: ALBUTEROL 2.5 MG/3 ML NEB RESP TX SCH ×4 (00:18→19:40)
[2019-01-23] MEDS ORDERED: LACTATED RINGERS 1,000 ML IV ONE (01:00)
[2019-01-23] MEDS: LACTATED RINGERS 1,000 ML IV SCH ×4 (02:14→15:30)
[2019-01-23] MEDS: CHOLECALCIFEROL 1,000 UNIT TABLET PO SCH (10:57)
[2019-01-23] MEDS: GABAPENTIN 300 MG CAPSULE PO SCH ×2 (10:57→20:34)
[2019-01-23] MEDS: cefTRIAXone 1,000 MG in SYRINGE 1 EACH IV SCH (10:58)
[2019-01-23] MEDS: ENOXAPARIN 40 MG/0.4 ML SYRINGE SUBCUT SCH (10:58)
[2019-01-23] MEDS: LOSARTAN 50 MG TABLET PO SCH (10:58)
[2019-01-23] MEDS: POTASSIUM CHLORIDE 10 MEQ TABLET PO SCH (10:58)
[2019-01-23] MEDS: AZITHROMYCIN INJ 500 MG in SODIUM CHLORIDE 0.9% 250 ML IV SCH (10:59)
[2019-01-23] MEDS: ONDANSETRON 4 MG/2 ML VIAL IV PRN ×2 (11:42→20:39)
[2019-01-23] MEDS: CITALOPRAM 20 MG TABLET PO SCH (20:34)
[2019-01-24] MEDS: ALBUTEROL 2.5 MG/3 ML NEB RESP TX SCH ×4 (01:15→19:17)
[2019-01-24] MEDS: LACTATED RINGERS 1,000 ML IV SCH ×2 (01:42→11:19)
[2019-01-24] MEDS: GABAPENTIN 300 MG CAPSULE PO SCH ×2 (08:18→20:05)
[2019-01-24] MEDS: ENOXAPARIN 40 MG/0.4 ML SYRINGE SUBCUT SCH (08:18)
[2019-01-24] MEDS: CHOLECALCIFEROL 1,000 UNIT TABLET PO SCH (08:18)
[2019-01-24] MEDS: LOSARTAN 50 MG TABLET PO SCH (08:19)
[2019-01-24] MEDS: ONDANSETRON 4 MG/2 ML VIAL IV PRN ×2 (08:47→21:10)
[2019-01-24] MEDS: POTASSIUM CHLORIDE 10 MEQ TABLET PO SCH (08:47)
[2019-01-24] MEDS: cefTRIAXone 1,000 MG in SYRINGE 1 EACH IV SCH (10:47)
[2019-01-24] MEDS: AZITHROMYCIN INJ 500 MG in SODIUM CHLORIDE 0.9% 250 ML IV SCH (11:20)
[2019-01-24] MEDS ORDERED: PROMETHAZINE 25 MG TABLET PO PRN (14:46)
[2019-01-24] MEDS: CITALOPRAM 20 MG TABLET PO SCH (20:05)
[2019-01-25] MEDS: ALBUTEROL 2.5 MG/3 ML NEB RESP TX SCH ×3 (00:55→14:09)
[2019-01-25 04:55] LABS: Basophils # 0.1 10*3/uL (0.0-0.2); Basophils % 0.4 % (0.0-0.8); Eosinophils # 0.5 10*3/uL (0.0-0.87); Eosinophils % 3.8 % (0.00-10.9); Hematocrit 27.8 VOL% (35.7-47.0); Hemoglobin 8.5 GM/DL (12.0-16.0); Immature Granulocytes % 4.9 %; Immature Granulocytes Absolute 0.59 #; Lymphocytes # 1.8 10*3/uL (1.4-4.0); Lymphocytes % 14.5 % (21.3-54.2); Mean Corpuscular HGB Conc 30.6 GM/DL (32-36); Mean Corpuscular Volume 95.9 FL (87-102); Mean Platelet Volume 10.3 FL (9.6-12.0); Monocytes % 7.4 % (1.7-12.7); Platelet Count 246 T/CUMM (130-400); White Blood Count 12.1 T/CUMM (4-12)
[2019-01-25 05:19] LABS: Eosinophils 5 % (0-10); Hypochromasia Slight; Lymphocytes 14 % (20-55); Myelocytes 1 %; Segmented Neutrophils 74 % (50-85); Total Cells Counted 100
[2019-01-25 05:20] LABS: Microcytosis Slight
[2019-01-25 05:21] LABS: Calcium 9.1 MG/DL (8.5-10.1); Osmolality,Calculated 284.1 MOS/KG (273-304)
[2019-01-25] MEDS: ENOXAPARIN 40 MG/0.4 ML SYRINGE SUBCUT SCH (08:46)
[2019-01-25] MEDS: POTASSIUM CHLORIDE 10 MEQ TABLET PO SCH (08:47)
[2019-01-25] MEDS: CHOLECALCIFEROL 1,000 UNIT TABLET PO SCH (08:47)
[2019-01-25] MEDS: GABAPENTIN 300 MG CAPSULE PO SCH (08:47)
[2019-01-25] MEDS: LOSARTAN 50 MG TABLET PO SCH (08:47)
[2019-01-25] MEDS ORDERED: FUROSEMIDE 40 MG/4 ML VIAL IV ONE (09:06)
[2019-01-25] MEDS ORDERED: BUDESONIDE/FORMOTEROL 160-4.5 INHALER 6 GM INH SCH (09:30)
[2019-01-25 16:23] VITALS: BP 111/59
== END 2019-01-25 16:45 | disposition home health service (06) | DRG 329 ==
LOC: N.SDSINP 05:46 → N.3E 10:48 → N.ICU 01-21 08:12 → N.3E 01-23 14:58
PROVIDERS: ADMIT Surgery; ATTEND Surgery

== ENCOUNTER 2020-09-18 05:24 | Inpatient (IN) ==
[2020-09-11 12:42] LABS: Basophils # 0.1 10*3/uL (0.0-0.2); Basophils % 0.5 % (0.0-0.8); Hematocrit 34.5 VOL% (35.7-47.0); Hemoglobin 10.6 GM/DL (12.0-16.0); Immature Granulocytes % 0.6 %; Immature Granulocytes Absolute 0.07 #; Lymphocytes # 1.7 10*3/uL (1.4-4.0); Lymphocytes % 14.5 % (21.3-54.2); Mean Corpuscular HGB Conc 30.7 GM/DL (32-36); Mean Corpuscular Volume 88.2 FL (87-102); Monocytes % 3.6 % (1.7-12.7); Neutrophils % 80.8 % (38.7-73.9); Platelet Count 368 T/CUMM (130-400); Red Blood Count 3.91 MC/CUMM (3.8-5.5); Red Cell Distribution Width 15.8 % (9.3-17.3); White Blood Count 11.8 T/CUMM (4-12)
[2020-09-11 13:18] LABS: Calcium 9.1 MG/DL (8.5-10.1); Osmolality,Calculated 280.5 MOS/KG (273-304); Potassium 5.2 MMOL/L (3.5-5.1)
[2020-09-18] MEDS ORDERED: ceFAZolin 1,000 MG in SYRINGE 1 EACH IV ONE (05:31)
[2020-09-18] MEDS ORDERED: ACETAMINOPHEN 500 MG TABLET PO ONE (06:00)
[2020-09-18] MEDS ORDERED: GABAPENTIN 400 MG CAPSULE PO ONE (06:00)
[2020-09-18] MEDS ORDERED: LACTATED RINGERS 1,000 ML IV SCH (06:00)
[2020-09-18] MEDS ORDERED: FAMOTIDINE 20 MG TABLET PO ONE (06:00)
[2020-09-18] MEDS ORDERED: MIDAZOLAM 2 MG/2 ML VIAL ONE (06:16)
[2020-09-18] MEDS ORDERED: fentaNYL 100 MCG/2 ML VIAL ONE ×2 (06:16→08:44)
[2020-09-18] MEDS ORDERED: BUPIVACAINE MPF 0.25% 30 ML VIAL ONE (06:28)
[2020-09-18] MEDS ORDERED: LIDOCAINE 1% 5 ML VIAL ONE (06:28)
[2020-09-18] MEDS ORDERED: TISSUE ADHESIVE 1 EACH APPLICATOR TOP ONE (06:33)
[2020-09-18] MEDS ORDERED: ONDANSETRON 4 MG/2 ML VIAL ONE ×2 (08:00→09:10)
[2020-09-18] MEDS ORDERED: DEXAMETHASONE 4 MG/1 ML VIAL ONE (08:00)
[2020-09-18] MEDS ORDERED: SEVOFLURANE 1 UNIT/15 MINUTE INH ONE ×5 (08:00→09:03)
[2020-09-18] MEDS ORDERED: ROCURONIUM 50 MG/5 ML VIAL IV ONE (08:00)
[2020-09-18] MEDS ORDERED: LIDOCAINE 2% 5 ML VIAL ONE (08:00)
[2020-09-18] MEDS ORDERED: ETOMIDATE 40 MG/20 ML VIAL IV ONE (08:00)
[2020-09-18] MEDS ORDERED: propofoL 200 MG/20 ML VIAL IV ONE (08:00)
[2020-09-18] MEDS ORDERED: PHENYLEPHRINE 1 MG/10 ML SYRINGE IV ONE (08:24)
[2020-09-18] MEDS ORDERED: GLYCOPYRROLATE 0.4 MG/2 ML VIAL ONE ×2 (08:24→08:36)
[2020-09-18] MEDS ORDERED: NEOSTIGMINE 10 MG/10 ML VIAL ONE (08:36)
[2020-09-18] MEDS ORDERED: HYDROmorphone 2 MG/1 ML VIAL ONE (09:10)
[2020-09-18] MEDS: HYDROmorphone 2 MG/1 ML VIAL IV PRN ×5 (09:13→19:59)
[2020-09-18] MEDS ORDERED: ONDANSETRON 4 MG/2 ML VIAL IV PRN (09:25)
[2020-09-18] MEDS ORDERED: PROMETHAZINE 25 MG/1 ML VIAL IM PRN (11:52)
[2020-09-18] MEDS ORDERED: ACETAMINOPHEN CODEINE PO PRN (11:52)
[2020-09-18] MEDS: LACTATED RINGERS 1,000 ML IV SCH ×2 (11:55→17:06)
[2020-09-18 12:42] LABS: Basophils # 0.1 10*3/uL (0.0-0.2); Basophils % 0.2 % (0.0-0.8); Hematocrit 37.6 VOL% (35.7-47.0); Hemoglobin 11.5 GM/DL (12.0-16.0); Immature Granulocytes % 0.7 %; Immature Granulocytes Absolute 0.16 #; Lymphocytes # 0.7 10*3/uL (1.4-4.0); Mean Corpuscular HGB Conc 30.6 GM/DL (32-36); Mean Corpuscular Volume 88.3 FL (87-102); Mean Platelet Volume 9.7 FL (9.6-12.0); Monocytes % 2.3 % (1.7-12.7); Neutrophils % 93.8 % (38.7-73.9); Platelet Count 353 T/CUMM (130-400); Red Blood Count 4.26 MC/CUMM (3.8-5.5); Red Cell Distribution Width 16.1 % (9.3-17.3); White Blood Count 22.3 T/CUMM (4-12)
[2020-09-18 12:53] LABS: Calcium 8.9 MG/DL (8.5-10.1); Osmolality,Calculated 279.7 MOS/KG (273-304); Potassium 5.1 MMOL/L (3.5-5.1)
[2020-09-18 13:19] LABS: Anisocytosis 1+; Band Neutrophils 12 % (0-10); Lymphocytes 5 % (20-55); Platelet Estimate Normal; Segmented Neutrophils 79 % (50-85); Total Cells Counted 100
[2020-09-18 13:20] LABS: Macrocytosis Slight
[2020-09-18] MEDS: VENLAFAXINE XR 75 MG CAPSULE PO SCH (21:07)
[2020-09-18] MEDS: GABAPENTIN 300 MG CAPSULE PO SCH (21:07)
[2020-09-18] MEDS: PANTOPRAZOLE 40 MG TABLET PO SCH (21:07)
[2020-09-19] MEDS: HYDROmorphone 2 MG/1 ML VIAL IV PRN ×4 (00:06→16:31)
[2020-09-19] MEDS: LACTATED RINGERS 1,000 ML IV SCH ×2 (02:09→05:22)
[2020-09-19] MEDS: ENOXAPARIN 40 MG/0.4 ML SYRINGE SUBCUT SCH (05:08)
[2020-09-19 05:49] LABS: Basophils # 0.1 10*3/uL (0.0-0.2); Basophils % 0.4 % (0.0-0.8); Hemoglobin 10.2 GM/DL (12.0-16.0); Immature Granulocytes % 0.5 %; Immature Granulocytes Absolute 0.09 #; Lymphocytes # 1.8 10*3/uL (1.4-4.0); Lymphocytes % 9.5 % (21.3-54.2); Mean Corpuscular HGB Conc 30.9 GM/DL (32-36); Mean Corpuscular Volume 86.6 FL (87-102); Mean Platelet Volume 10.5 FL (9.6-12.0); Monocytes % 5.6 % (1.7-12.7); Platelet Count 343 T/CUMM (130-400); Red Blood Count 3.81 MC/CUMM (3.8-5.5); Red Cell Distribution Width 16.3 % (9.3-17.3); White Blood Count 18.5 T/CUMM (4-12)
[2020-09-19 06:19] LABS: Calcium 8.6 MG/DL (8.5-10.1); Osmolality,Calculated 277.8 MOS/KG (273-304); Potassium 4.2 MMOL/L (3.5-5.1)
[2020-09-19] MEDS: VITAMIN E 400 UNIT CAPSULE PO SCH (09:09)
[2020-09-19] MEDS: GABAPENTIN 300 MG CAPSULE PO SCH ×2 (09:09→20:14)
[2020-09-19] MEDS: VENLAFAXINE XR 75 MG CAPSULE PO SCH ×2 (09:09→20:14)
[2020-09-19] MEDS: PANTOPRAZOLE 40 MG TABLET PO SCH ×2 (09:09→20:13)
[2020-09-19] MEDS: CYANOCOBALAMIN 500 MCG TABLET PO SCH (09:09)
[2020-09-19] MEDS: CHOLECALCIFEROL 5,000 UNIT TABLET PO SCH (09:10)
[2020-09-19] MEDS: DEXT 5% NACL 0.45% KCL 20 MEQ 20 MEQ/1,000 ML BAG IV SCH ×2 (10:01→23:35)
[2020-09-20] MEDS: HYDROmorphone 2 MG/1 ML VIAL IV PRN ×3 (02:51→09:30)
[2020-09-20] MEDS: ONDANSETRON 4 MG/2 ML VIAL IV PRN ×2 (02:57→06:48)
[2020-09-20] MEDS: ENOXAPARIN 40 MG/0.4 ML SYRINGE SUBCUT SCH (04:14)
[2020-09-20 05:57] LABS: Basophils # 0.1 10*3/uL (0.0-0.2); Basophils % 0.3 % (0.0-0.8); Hematocrit 36.6 VOL% (35.7-47.0); Hemoglobin 11.1 GM/DL (12.0-16.0); Immature Granulocytes % 0.5 %; Lymphocytes # 0.7 10*3/uL (1.4-4.0); Lymphocytes % 3.5 % (21.3-54.2); Mean Corpuscular HGB Conc 30.3 GM/DL (32-36); Mean Corpuscular Volume 89.5 FL (87-102); Mean Platelet Volume 10.6 FL (9.6-12.0); Monocytes % 3.7 % (1.7-12.7); Platelet Count 369 T/CUMM (130-400); Red Blood Count 4.09 MC/CUMM (3.8-5.5); Red Cell Distribution Width 16.3 % (9.3-17.3); White Blood Count 19.9 T/CUMM (4-12)
[2020-09-20 06:17] LABS: Calcium 8.8 MG/DL (8.5-10.1); Osmolality,Calculated 277.8 MOS/KG (273-304); Potassium 4.7 MMOL/L (3.5-5.1)
[2020-09-20 06:24] LABS: Band Neutrophils 7 % (0-10); Hypochromasia 1+; Lymphocytes 3 % (20-55); Microcytosis 1+; Platelet Estimate Adequate; Segmented Neutrophils 87 % (50-85); Total Cells Counted 100
[2020-09-20] MEDS ORDERED: SODIUM CHLORIDE 0.9% 1,000 ML IV ONE ×6 (08:40→22:06)
[2020-09-20] MEDS ORDERED: ACETAMINOPHEN 325 MG/10.15 ML UDCUP PO PRN (09:31)
[2020-09-20] MEDS ORDERED: HYDROmorphone 2 MG/1 ML VIAL IV ONE ×2 (10:35→15:00)
[2020-09-20 12:26] LABS: ABG Base Excess -2.8 MMOL/L (-2.5-2.5); ABG HCO3 22.7 MMOL/L (20-26); ABG Oxygen Saturation 92.7 % (95-100); ABG PCO2 42.1 MM HG (35-48); ABG PH 7.349 (7.35-7.45); ABG PO2 67.9 MM HG (80-95)
[2020-09-20] MEDS: GABAPENTIN 300 MG CAPSULE PO SCH ×2 (12:52→22:00)
[2020-09-20] MEDS: CHOLECALCIFEROL 5,000 UNIT TABLET PO SCH (12:53)
[2020-09-20] MEDS: VENLAFAXINE XR 75 MG CAPSULE PO SCH ×2 (12:53→22:00)
[2020-09-20] MEDS: PANTOPRAZOLE 40 MG TABLET PO SCH ×2 (12:53→22:01)
[2020-09-20] MEDS: VITAMIN E 400 UNIT CAPSULE PO SCH (12:53)
[2020-09-20] MEDS: CYANOCOBALAMIN 500 MCG TABLET PO SCH ×2 (12:53→12:59)
[2020-09-20] MEDS ORDERED: HYDROmorphone 2 MG/1 ML VIAL IV PRN ×2 (13:47→14:00)
[2020-09-20] MEDS ORDERED: LEVOFLOXACIN INJ 750 MG in PREMIX 1 EACH IV SCH (14:00)
[2020-09-20 16:05] LABS: Bilirubin,Urine Negative (Negative); Blood, Urine Negative (Negative); Glucose,Urine (UA) Negative (Negative); Hyaline Casts,Urine 1 /LPF (0-3); Ketones,Urine Negative (Negative); Mucus,Urine Occasional /LPF (Occasional); Nitrite,Urine Negative (Negative); Protein,Urine 30 MG/DL; RBC,Urine 2 /HPF (0-4); Squamous Epithelial Cell,Urine Occasional /HPF (0-10); Urine Appearance CLEAR (Clear); Urine Color Amber (Yellow); Urine Specific Gravity 1.021 (1.001-1.035); WBC,Urine 2 /HPF (0-6)
[2020-09-20] MEDS: DEXT 5% NACL 0.45% KCL 20 MEQ 20 MEQ/1,000 ML BAG IV SCH ×2 (18:00→21:48)
[2020-09-20] MEDS ORDERED: ROCURONIUM 50 MG/5 ML VIAL IV ONE (19:17)
[2020-09-20] MEDS ORDERED: ETOMIDATE 40 MG/20 ML VIAL IV ONE (19:17)
[2020-09-20] MEDS ORDERED: propofoL 200 MG/20 ML VIAL IV ONE (19:17)
[2020-09-20] MEDS ORDERED: LIDOCAINE 2% 5 ML VIAL ONE (19:17)
[2020-09-20] MEDS ORDERED: MIDAZOLAM 2 MG/2 ML VIAL ONE ×2 (19:18→20:02)
[2020-09-20] MEDS ORDERED: fentaNYL 100 MCG/2 ML VIAL ONE (19:18)
[2020-09-20] MEDS ORDERED: HEPARIN/NACL 0.9% 2 UNITS/ML 500 ML IV ONE (20:00)
[2020-09-20] MEDS ORDERED: SODIUM CHLORIDE 0.9% 250 ML IV ONE (20:07)
[2020-09-20] MEDS ORDERED: PHENYLEPHRINE 10 MG/1 ML VIAL IV ONE (20:07)
[2020-09-20 20:55] VITALS: BP 118/64
[2020-09-20 21:46] LABS: Basophils % 0.2 % (0.0-0.8); Eosinophils % 0.2 % (0.00-10.9); Hematocrit 36.7 VOL% (35.7-47.0); Hemoglobin 10.9 GM/DL (12.0-16.0); Immature Granulocytes % 0.7 %; Immature Granulocytes Absolute 0.09 #; Lymphocytes # 0.5 10*3/uL (1.4-4.0); Lymphocytes % 3.6 % (21.3-54.2); Mean Corpuscular HGB Conc 29.7 GM/DL (32-36); Mean Corpuscular Volume 90.2 FL (87-102); Monocytes % 5.4 % (1.7-12.7); Neutrophils % 89.9 % (38.7-73.9); Platelet Count 411 T/CUMM (130-400); Red Blood Count 4.07 MC/CUMM (3.8-5.5); Red Cell Distribution Width 16.2 % (9.3-17.3); White Blood Count 12.9 T/CUMM (4-12)
[2020-09-20 21:48] LABS: ABG Base Excess -9.9 MMOL/L (-2.5-2.5); ABG HCO3 16.5 MMOL/L (20-26); ABG Oxygen Saturation 94.1 % (95-100); ABG PCO2 48.8 MM HG (35-48); ABG PO2 82.3 MM HG (80-95); ABG TCO2 17.2 MMOL/L (23-27)
[2020-09-20 21:54] LABS: ABG PH 7.187 (7.35-7.45)
[2020-09-20] MEDS: ALBUTEROL/IPRATROPIUM 3 ML NEB RESP TX SCH (21:54)
[2020-09-20 22:02] LABS: Calcium 7.5 MG/DL (8.5-10.1); Osmolality,Calculated 282.5 MOS/KG (273-304); Potassium 5.2 MMOL/L (3.5-5.1)
[2020-09-20] MEDS: SODIUM CHLORIDE 0.9% 1,000 ML IV SCH (22:30)
[2020-09-20] MEDS ORDERED: SEVOFLURANE 1 UNIT/15 MINUTE INH ONE (22:43)
[2020-09-20 23:41] LABS: Band Neutrophils 15 % (0-10); Lymphocytes 2 % (20-55); Metamyelocytes 2 %; Segmented Neutrophils 77 % (50-85); Total Cells Counted 100
[2020-09-20 23:42] LABS: Microcytosis Slight; Platelet Estimate Increased
[2020-09-20 23:43] LABS: Hypochromasia Slight; Polychromasia Slight
[2020-09-20 23:45] LABS: Anisocytosis 1+
[2020-09-20] MEDS: PIPERACILLIN/TAZOBACTAM 3,375 MG in SODIUM CHLORIDE 0.9% 100 ML IV SCH (23:50)
[2020-09-21] MEDS: PHENYLEPHRINE DRIP 40 MG/250 ML PREMIX IV PRN ×2 (00:39→07:00)
[2020-09-21] MEDS: ALBUTEROL/IPRATROPIUM 3 ML NEB RESP TX SCH ×4 (00:43→19:46)
[2020-09-21 03:09] LABS: ABG HCO3 15.6 MMOL/L (20-26); ABG Oxygen Saturation 86.2 % (95-100); ABG PCO2 46.2 MM HG (35-48); ABG PO2 57.8 MM HG (80-95); ABG TCO2 16.1 MMOL/L (23-27); Allen Test Positive; Pt O2 Delivery Device Ventilator
[2020-09-21 03:19] LABS: ABG PH 7.183 (7.35-7.45)
[2020-09-21] MEDS ORDERED: SODIUM BICARBONATE 50 MEQ/50 ML VIAL IV ONE ×4 (04:09→14:27)
[2020-09-21] MEDS ORDERED: NOREPINEPHRINE 4 MG/4 ML VIAL IV ONE ×2 (04:31→04:33)
[2020-09-21] MEDS: NOREPINEPHRINE 8 MG in SODIUM CHLORIDE 0.9% 242 ML IV PRN ×2 (04:35→21:54)
[2020-09-21] MEDS ORDERED: SODIUM CHLORIDE 0.9% 1,000 ML IV ONE ×3 (04:47→12:44)
[2020-09-21 05:24] LABS: ABG Base Excess -9.2 MMOL/L (-2.5-2.5); ABG Oxygen Saturation 98.3 % (95-100); ABG PCO2 44.9 MM HG (35-48); ABG PH 7.219 (7.35-7.45); ABG TCO2 17.1 MMOL/L (23-27)
[2020-09-21 05:30] LABS: Calcium 7.1 MG/DL (8.5-10.1); Osmolality,Calculated 287.1 MOS/KG (273-304); Potassium 5.3 MMOL/L (3.5-5.1)
[2020-09-21] MEDS ORDERED: SODIUM POLYSTYRENE SULFATE 15 GM/60 ML BOTTLE PO ONE (05:38)
[2020-09-21] MEDS: SODIUM CHLORIDE 0.9% 1,000 ML IV SCH (06:30)
[2020-09-21] MEDS: PIPERACILLIN/TAZOBACTAM 3,375 MG in SODIUM CHLORIDE 0.9% 100 ML IV SCH ×2 (06:52→15:49)
[2020-09-21] MEDS: ENOXAPARIN 40 MG/0.4 ML SYRINGE SUBCUT SCH (06:52)
[2020-09-21 07:23] LABS: Basophils # 0.1 10*3/uL (0.0-0.2); Basophils % 0.5 % (0.0-0.8); Eosinophils % 0.2 % (0.00-10.9); Immature Granulocytes % 1.6 %; Immature Granulocytes Absolute 0.31 #; Lymphocytes # 0.8 10*3/uL (1.4-4.0); Mean Corpuscular HGB Conc 28.9 GM/DL (32-36); Mean Corpuscular Volume 95.5 FL (87-102); Mean Platelet Volume 10.2 FL (9.6-12.0); Monocytes % 4.7 % (1.7-12.7); Platelet Count 302 T/CUMM (130-400); Red Blood Count 3.98 MC/CUMM (3.8-5.5); Red Cell Distribution Width 16.4 % (9.3-17.3); White Blood Count 19.2 T/CUMM (4-12)
[2020-09-21] MEDS ORDERED: fentaNYL INJ 1,250 MCG in SODIUM CHLORIDE 0.9% 225 ML IV PRN (07:47)
[2020-09-21] MEDS ORDERED: MIDAZOLAM 100 MG in SODIUM CHLORIDE 0.9% 80 ML IV PRN (07:47)
[2020-09-21 07:52] LABS: Band Neutrophils 11 % (0-10); Hypochromasia 1+; Lymphocytes 7 % (20-55); Metamyelocytes 7 %; Segmented Neutrophils 69 % (50-85); Total Cells Counted 100
[2020-09-21 07:53] LABS: Burr Cells Slight; Microcytosis 1+
[2020-09-21] MEDS ORDERED: MAGNESIUM SULF RIDER 4 GM in PREMIX 1 EACH IV ONE (08:00)
[2020-09-21] MEDS: PANTOPRAZOLE 40 MG VIAL IV SCH ×2 (08:49→21:04)
[2020-09-21] MEDS: VENLAFAXINE XR 75 MG CAPSULE PO SCH ×2 (08:50→21:04)
[2020-09-21] MEDS: CHOLECALCIFEROL 5,000 UNIT TABLET PO SCH (08:50)
[2020-09-21] MEDS: CYANOCOBALAMIN 500 MCG TABLET PO SCH (08:50)
[2020-09-21] MEDS: GABAPENTIN 300 MG CAPSULE PO SCH ×2 (08:50→21:04)
[2020-09-21] MEDS: VITAMIN E 400 UNIT CAPSULE PO SCH (08:50)
[2020-09-21] MEDS: SODIUM BICARB INJ 100 MEQ in DEXTROSE 5% 1,000 ML IV SCH ×3 (09:09→20:35)
[2020-09-21] MEDS: PHENYLEPHRINE INJ 160 MG in SODIUM CHLORIDE 0.9% 234 ML IV PRN ×2 (10:30→21:54)
[2020-09-21] MEDS ORDERED: DEXTROSE 50% 25 GM/50 ML VIAL IV PRN (11:30)
[2020-09-21] MEDS ORDERED: DEXTROSE 50% 25 GM/50 ML VIAL IV ONE (11:38)
[2020-09-21 14:01] LABS: Albumin 1.3 G/DL (3.4-5.0); Bilirubin,Total 1.5 MG/DL (0.2-1.0); Calcium 6.7 MG/DL (8.5-10.1); Osmolality,Calculated 290.3 MOS/KG (273-304); Total Protein 4.2 G/DL (6.4-8.2)
[2020-09-21] MEDS ORDERED: INSULIN REGULAR 100 UNIT/ML IV ONE (14:35)
[2020-09-21] MEDS ORDERED: CALCIUM GLUCONATE 1,000 MG in SODIUM CHLORIDE 0.9% 100 ML IV ONE (15:00)
[2020-09-21 15:53] LABS: ABG Base Excess -12.1 MMOL/L (-2.5-2.5); ABG HCO3 14.8 MMOL/L (20-26); ABG Oxygen Saturation 94.1 % (95-100); ABG PCO2 40.1 MM HG (35-48); ABG PO2 72.5 MM HG (80-95); ABG TCO2 14.7 MMOL/L (23-27)
[2020-09-21 15:55] LABS: ABG PH 7.191 (7.35-7.45)
[2020-09-21 16:51] LABS: Hepatitis B Core IgM Quant 0.09 Index; Hepatitis B Surface Ag Quant < 0.10 Index; Hepatitis B Surface Ag Result Non-Reactive (NonReactive); Hepatitis C Virus Ab Quant 0.06 Index; Hepatitis C Virus Ab Result Non-Reactive (NonReactive)
[2020-09-21] MEDS ORDERED: HEPARIN 10,000 UNIT/10 ML VIAL IV SCH (17:00)
[2020-09-21] MEDS ORDERED: PHENYLEPHRINE 1 MG/10 ML SYRINGE IV ONE (18:36)
[2020-09-21] MEDS ORDERED: MIDAZOLAM 2 MG/2 ML VIAL ONE ×2 (18:36→18:37)
[2020-09-21] MEDS ORDERED: ROCURONIUM 50 MG/5 ML VIAL IV ONE (18:36)
[2020-09-21] MEDS ORDERED: fentaNYL 250 MCG/5 ML VIAL ONE (18:37)
[2020-09-21 20:57] LABS: ABG Base Excess -17.7 MMOL/L (-2.5-2.5); ABG HCO3 11.1 MMOL/L (20-26); ABG Oxygen Saturation 93.8 % (95-100); ABG PCO2 41.3 MM HG (35-48); ABG PO2 86.7 MM HG (80-95); ABG TCO2 11.5 MMOL/L (23-27)
[2020-09-21 21:06] LABS: Basophils # 0.1 10*3/uL (0.0-0.2); Basophils % 0.8 % (0.0-0.8); Hematocrit 33.8 VOL% (35.7-47.0); Immature Granulocytes % 1.7 %; Lymphocytes # 0.7 10*3/uL (1.4-4.0); Lymphocytes % 4.2 % (21.3-54.2); Mean Corpuscular HGB Conc 29.6 GM/DL (32-36); Mean Corpuscular Volume 93.1 FL (87-102); Mean Platelet Volume 11.5 FL (9.6-12.0); Monocytes % 4.5 % (1.7-12.7); NRBC # 0.13 10*3/uL; Neutrophils % 88.8 % (38.7-73.9); Platelet Count 170 T/CUMM (130-400); Red Blood Count 3.63 MC/CUMM (3.8-5.5); Red Cell Distribution Width 16.6 % (9.3-17.3); White Blood Count 17.3 T/CUMM (4-12)
[2020-09-21 21:07] LABS: ABG PH 7.069 (7.35-7.45)
[2020-09-21 21:29] LABS: INR 1.6; PT Patient Result 16.6 SECS (9.8-11.9)
[2020-09-21 21:57] LABS: Alanine Aminotransferase 4281 U/L (13-56); Albumin 1.3 G/DL (3.4-5.0); Alkaline Phosphatase 157 U/L (45-117); Aspartate Amino Transferase 13680 U/L (0-37); Blood Urea Nitrogen 34 MG/DL (7-18); Calcium 6.9 MG/DL (8.5-10.1); Carbon Dioxide 11 MMOL/L (21-32); Estimated Glom Filtration Rate 17 ML/MIN; Glucose 122 MG/DL (74-106); Osmolality,Calculated 291.1 MOS/KG (273-304); Potassium 4.9 MMOL/L (3.5-5.1); Sodium 142 MMOL/L (136-145)
[2020-09-22] MEDS ORDERED: ENOXAPARIN 30 MG/0.3 ML SYRINGE SUBCUT SCH (05:00)
== END 2020-09-21 22:30 | disposition expired | DRG 329 ==
LOC: N.OR 05:24 → N.SDSINP 05:27 → N.3E 11:51 → N.CC 09-20 14:17
PROVIDERS: ADMIT Surgery; ATTEND Surgery